=== PATIENT | female | born 1970 | race Caucasian/White ===

== ENCOUNTER 2021-01-06 11:54 | Emergency (ER) | payer SELFPAY ==
[2021-01-06 12:02] VITALS: BP 127/79; PULSE 120; RESP 16; TEMP 39.1; O2SAT 95
--- NOTE | 2021-01-06 12:54 | ED.FEVER ---
HPI - Fever General Chief Complaint: Fever Stated Complaint: Fever,Body Aches Source: patient and RN notes reviewed Limitations: no limitations History of Present Illness HPI Narrative: The patient, a smoker/drinker on no meds, presents with fever. Patient states after essentially uneventful day yesterday and throughout the night, the onset only this morning of fever and chills. This is associated with myalgias with headache with nausea and loose stools; no S OB, loss of taste/smell, CP, sore throat, earache, increased cough-she has mild smoker's cough, and would like refill of inhaler. [id number] testing is noncontributory Covid, strep. Related Data Allergies Allergy/AdvReac Type Severity Reaction Status Date / Time No Known Allergies Allergy Verified 01/06/21 12:04 Review of Systems Review of Systems: General/Constitutional: No weight loss, REPORTS fever Eyes: N0: Redness,discharge Ears/Nose/Throat: No: Epistaxis,ear discharge Respiratory: Denies: Hemoptysis Gastrointestinal: No Vomiting, Bleeding-rectal Skin: No Lumps, eruption Neurologic: No Focal Weakness,Sz Hematologic: Denies: Petechiae/Purpura Psychiatric: No: Suicida ideationl All Other Systems: Reviewed and Negative PMFSH Comments At time of signature, agree with nursing past medical, surgical, social and family history. There is no relevant family history pertinent to the presenting complaint Exam Narrative: General Appearance: Febrile/flushed appearing, Well nourished, no distress at all EYE: PERRLA, Conjunctiva clear Ears: Auditory canal normal, TM normal Nose: Rhinorrhea, Mucousal erythema Mouth/Throat: MM moist, Uvula midline, Pharyngeal erythema Neck: Supple, No adenopathy Respiratory: No respiratory distress, BS equal, CTA, increased AP diameter Cardiovascular: RRR tacky, No JVD Musculoskeletal: Non tender, Normal strength Skin: Warm, Dry Neurological: A&O x3, CN II-XII intact Psychiatric: Normal mood, Normal affect Course Vital Signs Vital signs: Vital Signs Temperature 102.4 F H 01/06/21 12:02 Pulse Rate 120 H 01/06/21 12:02 Respiratory Rate 16 01/06/21 12:02 Blood Pressure 127/79 01/06/21 12:02 Pulse Oximetry 95 01/06/21 12:02 Temperature 102.4 F H 01/06/21 12:02 Pulse Rate 120 H 01/06/21 12:02 Respiratory Rate 16 01/06/21 12:02 Blood Pressure 127/79 01/06/21 12:02 Pulse Oximetry 95 01/06/21 12:02 MDM - Fever Lab Data Labs: Lab Results 01/06/21 01/06/21 Range/Units 12:24 12:25 SARS-CoV-2 RNA (RT-PCR) Pending POC SARS CoV-2 Ag Negative (Negative) Influenza A Screen Negative Reference Range: Negative Influenza B Screen Negative Reference Range: Negative Strep Screen Presumptive Negative *(Reference Range: Negative)* Discharge Plan Discharge Clinical Impression: Acute febrile illness Patient Disposition: Home, Self-Care Condition: Stable Instructions: Antibiotic Form, Acute Bronchitis (ED) Additional Instructions: Vitamins D, C, B and zinc are helpful for febrile infections In smokers, pulse ox less than 93% should be seen by hospital/Doctor Prescriptions: New codeine-guaifenesin 10-100 mg/5 mL liquid 7.5 ml PO Q6H PRN (Reason: cough) Qty: 118 RF: 0 cefuroxime axetil 500 mg tablet 500 mg PO Q12H Qty: 14 RF: 0 Follow-up/Referrals: PHYSICIAN,DRILLING ASSISTANT [Primary Care Provider] - Stand Alone Forms: Work/School Release IP
[2021-01-07 17:33] LABS: SARS-CoV-2 RNA PCR Negative
--- NOTE | 2021-01-08 14:29 | PC.NURSE ---
PT CALLED AND REPORTS SHE CONTINUES WITH THE FEVER. SPOKE WITH DR BURGOS, WHO INITIALLY EVALUATED PT. AND INSTRUCTED TO CHANGE WORK NOTE TO 3 DAYS OFF AND NOT TO RETURN UNTIL FEVER FREE FOR 24 HOURS.
== END 2021-01-06 13:00 | disposition home or self-care (01) ==
PROVIDERS: Emergency Provider Emergency Medicine
DX: R50.9 Fever, unspecified (principal); Z20.822 Contact with and (suspected) exposure to COVID-19
CPT/HCPCS: 87081; 87426; 87804; 87880; 99203; C9803; G0463; U0003; U0005

== ENCOUNTER 2023-08-28 16:59 | Emergency (ER) | payer OTHER, SELFPAY ==
--- NOTE | ~2023-08-28 | XR_ITS ---
EXAMINATION: [id number] Exam Date/Time: 08/28/2023 17:12 CDT HISTORY: fall; pain Comparison: None. RESULT: Lines, tubes, and devices: None. Lungs and pleura: Clear. Cardiomediastinal silhouette: Stable. Other: No acute osseous or upper abdominal finding. Cortical irregularity of the right posterolatera l ninth and 10th ribs, with possible healing changes. IMPRESSION: No acute cardiopulmonary process. No acute osseous finding in the left ribs. Presumed subacute/chronic right posterolateral ninth and 10th rib fractures. Reviewed, dictated and finalized at location K.
[2023-08-28 17:16] VITALS: BP 98/64; PULSE 91; RESP 16; TEMP 36.2; O2SAT 95
--- NOTE | 2023-08-28 18:01 | ED.GENADULT ---
HPI - General Adult General Chief complaint: Unspecified Stated complaint: Broke rib Source: patient, RN notes reviewed and old records reviewed Mode of arrival: ambulatory Limitations: no limitations History of Present Illness HPI narrative: 52-year-old female to Express lateral rib pain that is worse with inspiration. Patient endorses she lost her balance and fell off of a step ladder yesterday when attempting to change a light bulb. Patient states that when she fell she landed with her left lateral ribs on the top the step ladder and then fell to the floor. Patient denies hitting head during fall or any other injuries. Patient states that she went to work and was told that she needed to have x-rays completed and be cleared to return to work. Patient argumentative with provider and initially refuses to answer additional questions. After deescalation patient denies shortness of breath, Chest pain, cough, pertinent medical history. Related Data Allergies Allergy/AdvReac Type Severity Reaction Status Date / Time No Known Allergies Allergy Verified 01/06/21 12:04 Review of Systems Review of Systems: All systems reviewed & are unremarkable except as noted in HPI and below Constitutional: Constitutional: Reports no additional constitutional complaints Eyes: Eyes: Reports no additional eye complaints ENT: Reports system reviewed and no additional complaints, except as documented Cardiovascular: Cardiovascular: Reports no additional cardiovascular complaints, Denies chest pain and Denies dyspnea Respiratory: Respiratory: Reports no additional respiratory complaints, Denies cough and Denies dyspnea Musculoskeletal: Musculoskeletal: Reports as per HPI and Reports other ( left lateral rib pain) Neurologic: Reports system reviewed and no additional complaints, except as documented Psychiatric: Psychiatric: Reports no additional psychiatric complaints PMFSH Comments At the time of my signature, I reviewed and agree with the nursing past medical, surgical, social, and family history. There is no relevant family history pertinent to the patient complaint. Exam Const: General: no acute distress, intoxicated appearing and well nourished; No cooperative Nutritional Appearance: well nourished Orientation/consciousness: patient oriented x3 Limitations: no limitations HENMT: Head: normal to inspection Ears: external ears normal Face/Nose/Sinus: Normal external nose present, Normal nares present, normal facial exam, No erythema and No edema Face and sinus: normal facial exam, no erythema and no edema Mouth: Yes Normal oral and palatal mucosa present Eyes: General: appearance normal, both eyes and all related structures Neck: Neck: normal visual inspection, full ROM and no meningeal signs Lymphatic: no lymphadenopathy noted and no lymphedema noted Chest: Other: patient refused Resp: Effort & Inspection: normal respiratory effort, able to speak in complete sentences, no audible wheezes, no cough, no grunting, not labored, no nasal flaring, no pursed lip breathing and no respiratory distress Auscultation: clear to auscultation bilaterally Cardio: Jugular venous distension: no JVD Rate: regular rate Rhythm: regular rhythm Back/Spine/Pelvis: Cervical Spine: cervical ROM normal Skin: General skin exam: normal color, no rashes or lesions noted and turgor normal Neuro: General: patient oriented x3, gait normal, moves all extremities and no meningeal signs Speech: normal speech Gait exam (Neuro): Normal gait present Extrem: General: normal to inspection and full ROM Psych: Appearance: grossly normal and disheveled Speech and movement: Slurred speech present, Psychomotor agitation in speech present and Restless speech present Affect: Indifferent affect present and Irritable affect present Attitude: Belligerent attititude/behavior present Course Course Emergency Course: Some parts of this dictation were genera
--- NOTE | 2023-08-28 18:20 | PC.NURSE ---
Patient very argumentative and confrontational with all staff while in express care. Not wanting to get undressed, arguing with all staff, refusing to sign papers, demanding to talk to radiologist. Told this nurse, sorry, i am an alcoholic .
== END 2023-08-28 18:25 | disposition home or self-care (01) ==
PROVIDERS: Emergency Provider Nurse Practitioner Family
DX: S20.212A Contusion of left front wall of thorax, initial encounter (principal); W11.XXXA Fall on and from ladder, initial encounter
CPT/HCPCS: 71101; 99213; G0463

== ENCOUNTER 2024-07-11 08:54 | Emergency (ER) | payer OTHER, SELFPAY ==
--- NOTE | ~2024-07-11 | XR_ITS ---
EXAMINATION: XR tibia fibula LT 2V DATE: 07/11/2024 09:35 INDICATION: Pain and bruising at the lateral upper left lower leg TECHNIQUE: Anteroposterior and lateral views of the left tibia and fibula were obtained. COMPARISON: None. FINDINGS: Alignment is normal. No fracture. Joint spaces are normal. Soft tissues are unremarkable. No knee or ankle joint effusion. IMPRESSION: 1. Negative left lower leg radiographs. Reviewed, dictated and finalized at location B.
[2024-07-11 09:05] VITALS: BP 127/76; PULSE 91; RESP 16; TEMP 36.4; O2SAT 96
--- OUTSIDE RECORDS SUMMARY | 2024-07-11 09:09 | XMS_ITS | Clinical Summary ---
Author Organization [facility] Address [address] [place] [address] Phone Care Team Providers Care Viticulturist Name Role Phone Unavailable Primary Care Provider Unavailabl e Allergies No known active allergies Medications gabapentin (NEURONTIN) 100 mg capsule 4 Active hydrOXYzine HCL (ATARAX) 25 mg tablet Take 25 mg by mouth 4 times daily as needed. Active fluoxetine HCl (PROZAC ORAL) Take by mouth. A ctive chlordiazePOXID E (LIBRIUM) 25 mg capsule Take 25 mg by mouth 3 times daily as needed for Alcohol / Drug Withdrawal Symptoms. 4 Active citalopram (CeleXA) 40 mg tablet Take 40 mg by mouth daily. 4 Active omeprazole (PriLOSEC) 10 mg Capsule, Delayed Release(E.C.) Take 10 mg by mouth daily. 4 Active QUEtiapine (SEROquel) 25 mg tablet Take 25 mg by mouth 2 times daily. 4 Active albuterol sulfate HFA 90 mcg/actuation aerosol inhaler Take 2 Puffs by inhalation every 6 hours as needed for Wheezing or Shortness of Breath. 8.5 Gram 4 Active Encounters Date Type Department Care Team Description 06/25/2024 External Device Data [facility] Provider, Abstract 06/18/2024 External Device Data [facility] Provider, Abstract 06/18/2024 External Device Data [facility] Provider, Abstract 06/11/2024 External Device Data [facility] Provider, Abstract 05/07/2024 External Device Data [facility] Provider, Abstract 05/01/2024 External Device Data [facility] Provider, Abstract from Last 3 Months Social History Tobacco Use Types Packs/Day Years Used Date Smoking Tobacco: Every Day Cigarettes Tobacco Cessation:Ready to Q uit: Not Asked; Counseling Given: Not Answered Alcohol Use Standard Drinks/Week Comments Not Currently 0 (1 standard drink = 0.6 oz pur e alcohol) 12 days sober Feeling Safe Answer Date Recorded Are you in a relationship wi th someone who hurts you emotionally and/or physically? No 10/08/2023 Comments No Sex and Gender Information Value Date Recorded Sex Assigned at Not on file Legal Sex Female 2:28 PM CDT Gender Identity Not on file Sexual Orientation Not on file Last Filed Vital Signs Vital Sign Reading Time Taken Comments Blood Pressure 111/76 10/08/2023 3:00 PM CDT Pulse 80 10/08/2023 3:00 PM CDT Temperature 36.7 C (98 F) 10/08/2023 11:51 AM CDT Respiratory Rate 17 10/08/2023 3:00 PM CDT Oxygen Saturation 91% 10/08/2023 3:00 PM CDT Inhaled Oxygen Concentration - - Weight 67.6 kg (149 lb 1.6 oz) 10/08/2023 11:51 AM CDT Height 165.1 cm (5' 5 ) 10/08/2023 11:51 AM CDT Body Mass Index 24.81 10/08/2023 11:51 AM CDT Plan of Treatment Health Maintenance Due Date Last Done Comments DTAP/TDAP/TD VACCINES (1 - Tdap) 1988 HEPATITIS B VACCINES (1 of 3 - 19+ 3-dose series) 11/12 HPV/Cotest (21-29) 1990 CERVICAL CANCER SCREENING 12/03/1999 HPV/Cotest (30-65) 12/03/1999 PAP SMEAR 12/03/1999 BREAST CANCER SCREENING 2009 COLORECTAL SCREENING 2014 Colorectal Cancer Screening 2014 FIT-DNA Q 3 years 2014 FIT/FOBT Q 1 year 2014 Flex Sig/CT Colonography Q 5 years 2014 ZOSTER VACCINE (1 of 2) 12/03/2019 INFLUENZA VACCINE (#1) 2023 Insurance
--- OUTSIDE RECORDS SUMMARY | 2024-07-11 09:09 | XMS_ITS | Clinical Summary ---
Author Organization [email or web address] Address [address] [place] [address] Care Team Providers Care High School Librarian Name Role Phone Nelida Gomez Primary Care Provider [phone] Source Comments [email or web address],non-owned Affiliates and Associated Physician Practices is amultiple site organization consisting of ambulatory clinics and hospital sitesin [place], [place], [place] and [place]. This disclosure is being madepursuant to the Care Everywhere program and may not contain all information available regarding this patient. Last updated 17.[email or web address] Allergies No known active allergies Medications * This document contains information received from the source organization and may not represent a complete record from that organization. * Be aware that medications may not be up to date on this document. Alwaysverify current medications with the patient. Symbicort 80-4.5 MCG/ACT inhalerIndicat ions:Asthma 04/26/19 24 Active docusate sodium (Colace) 100 MG capsuleIndicat ions:Constipat ion Take 1 (one) capsule by mouth once daily Activ e Melatonin 5 MGIndications: insomnia Active gabapentin (Neurontin) 100 MG capsuleIndicat ions:Alcohol Use Disorder Take 2 (two) capsules by mouth 3 times daily Reasons: Abuse or Misuse of Alcohol 180 capsule 11/15/19 24 Active venlafaxine (Effexor) 37.5 MG tabletIndicati ons:Major Depressive Disorder Take 1 (one) tablet by mouth once daily after breakfast Reasons: Major Depressive Disorder 30 tablet 1 11/15/19 24 Active naltrexone (Revia) 50 MG tabletIndicati ons:Alcohol Use Disorder Take 1 (one) tablet by mouth once daily Reasons: Abuse or Misuse of Alcohol 30 tablet 1 11/15/19 24 Active propranolol (Inderal) 10 MG tabletIndicati ons:Anxiety Take 1 (one) tablet by mouth at bedtime Reasons: Feeling Anxious 30 tablet 1 11/15/19 24 Active pantoprazole EC (Protonix) 40 MG tabletIndicati ons:Gastroesop hageal Reflux Disease Take 1 (one) tablet by mouth once daily Reasons: Gastroesophageal Reflux Disease 11/15/19 24 Active nicotine polacrilex (Nicorette) 2 MG gumIndications :Nicotine Dependence Take 1 (one) Each by mouth as needed for Smoking Cessation - Gum should be slowly chewed until a peppery taste emerges, then parked between cheek and gum to facilitate nicotine absorption. - Avoid eating or drinking for 15 minutes before and during chewing gum. Reasons: Nicotine Addiction 40 Each 1 11/15/19 24 Active Active Problems Problem Noted Date Diagnosed Date Current episode of major dep ressive disorder without prior episode, unspecified depression episode severity 11/12/2023 Social History Tobacco Use Types Packs/Day Years Used Date Smoking Tobacco: Every Day Cigarettes Smokeless Tobacco: Never Tobacco Cessation:Ready to Q uit: No; Counseling Given: Yes Alcohol Use Standard Drinks/Week Comments Yes 0 (1 standard drink = 0.6 oz pur e alcohol) 1/5 of vodka daily AUDIT-C Answer Date Recorded Q1: How often do you have a drink containing alcohol? 4 or more times a week 11/12/2023 Q2: How many drinks containi ng alcohol do you have on a typical day when you are drinking? 5 or 6 Q3: How often do you have si x or more drinks on one occasion? Daily or almost daily 11/12/2023 Overall Financial Resource Strain (CARDIA) Answe r Date Recorded How hard is it for you to pa y for the very basics like food, housing, medical care, and heating? Not very hard 11/12/2023 [facility] [place] of Occupat ional Health - Occupational Stress Questionnaire Answer Date Recorded Do you feel stress - tense, restless, nervous, or anxious, or unable to sleep at night because your mind is troubled all the time - these days? Only a little 11/12/2023 Hunger Vital Sign Answer Date Recorded Within the past 12 months, y ou worried that your food would run out before you got the money to buy more. Never true 11/12/19 24 Within the past 12 months, t he food you bought just didn't last and you didn't have money to get more. Never true 11/12/2023 PRAPARE - Transportation Answer Date Re corded In the past 12 months, has l ack of transportation kept you from medical appointments or from getting medications? No 03/2023 In the past 12 months, has l ack of transportation kept you from meetings, work, or from getting things needed for daily living? No 11/12/2023 Housing Stability Vital Sign Answer Bonifacio e Recorded In the last 12 months, was t here a time when you were not able to pay the mortgage or rent on time? No 11/12/2023 In the last 12 months, how many places have you lived? 1 11/12/2023 In the last 12 months, was t here a time when you did not have a steady place to sleep or slept in a [facility] (including now)? No 11/12/2023 Comments Unknown Sex and Gender Information Value Date Recorded Sex Assigned at Not on file Legal Sex Female 11:54 AM [employer] Gender Identity Not on file Sexual Orientation Not on file Last Filed Vital Signs Vital Sign Reading Time Taken Comments Blood Pressure 126/85 11/15/2023 9:04 AM CDT Pulse 79 11/15/2023 9:04 AM CDT Temperature 36.7 C (98 F) 11/15/2023 9:04 AM CDT Respiratory Rate 16 11/15/2023 9:04 AM CDT Oxygen Saturation 98% 11/15/2023 9:04 AM CDT Inhaled Oxygen Concentration - - Weight 63.5 kg (140 lb) 04/28/2023 10:24 AM [employer] Height 163.8 cm (5' 4.5 ) 04/28/2023 10:24 AM CS T Body Mass Index 23.66 04/28/2023 10:24 AM [employer] Plan of Treatment Health Maintenance Due Date Last Done Comments COLOGUARD (AGES 45-75) - COL ON CA SCREENING 1969 COLON MONITORING 1969 COLONOSCOPY - COLON CA SCREENING 1969 CT COLONOGRAPHY - COLON CA SCREENING 1969 Colorectal Cancer Screening 1969 FIT - COLON CA SCREENING 1969 FLEX SIG - COLON CA SCREENING 1969 MAMMOGRAM 1969 PAP SMEAR 1969 HIV SCREENING 1984 HEPATITIS C SCREENING 11/28/1987 DTAP/TDAP/TD VACCINES (1 - Tdap) 1988 HEPATITIS B VACCINE (1 of 3 - 19+ 3-dose series) 1988 PNEUMOCOCCAL VACCINE 50+ (1 of 2 - PCV) 1988 ZOSTER VACCINE (1 of 2) 12/03/2019 COVID-19 VACCINE (1 - 2023-2 5 season) 2023 DEPRESSION SCREENING 03/13/2024 INFLUENZA VACCINE (Season Ended) 2024 LIPID TESTING 11/11/2028 11/12/2023 HIB VACCINE Aged Out No longer eligi ble based on patient's age to complete this topic HPV VACCINE Aged Out No longer eligi ble based on patient's age to complete this topic MENINGOCOCCAL (Group B) VACC INE SHARED DECISION-MAKING Aged Out No longer eligibl e based on patient's age to complete this topic MENINGOCOCCAL GROUPS A/C/Y/W VACCINE Aged Out No longer eligible b ased on patient's age to complete this topic Procedures Procedure Name Priority Date/Time Associated Diagnosis Comments LIPID PROFILE AM Draw 11/12/2023 7:17 AM CDT from Last 3 Months or Most Recently Relevant to Health Maintenance Results * (ABNORMAL) LIPID PROFILE (11/12/2023 7:17 AM CDT) Cholesterol 145 <200 mg/dL 11/12/2023 9:59 AM CDT [facility] Triglycerides 154(H) <150 mg/dL 11/12/2023 9:59 AM CDT [facility] HDL Cholesterol 64 >40 mg/dL 4 9:59 AM CDT [facility] LDL Calculated 50 <130 mg/dL 11/12/2023 9:59 AM CDT [facility] VLDL Calculated 31(H) <=30 mg/dL 4 9:59 AM CDT [facility] Chol HDL Ratio 2.3 <4.5 11/12/2023 9:59 AM CDT [facility] LDL/HDL Ratio 0.8 <5.0 11/12/2023 9:59 AM CDT [facility] Blood BLOOD SPECIMEN / Unknown Venipuncture / Unknown 11/12/2023 7:17 AM CDT 11/12/2023 8:09 AM CDT Marizol Solomon [employer] [facility] - CHEMISTRY ORDERABLE S Final Result [facility] [address] [place] [address] from Last 3 Months or Most Recently Relevant to Health Maintenance Insurance [facility] Advance Directives * Full Code (Latest Code Status on File) Date Activated Date Inactivated Comments 11/12/2023 2:18 AM 11/15/2023 12:00 PM Care Teams High School Librarian Relationship Specialty Start Date End Date Nelida Gomez [address] [place] [address] Dr Lowe [address] [place] [phone] PCP - General 04/28/23
--- OUTSIDE RECORDS SUMMARY | 2024-07-11 09:09 | XMS_ITS | Clinical Summary ---
Author Organization [facility] Address [address] [place] [address] Phone Care Team Providers Care Management Scientist Name Role Phone Provider, None Primary Care Provider Unavailabl e Allergies No known active allergies Medications HYDROcodone-joão taminophen (NORCO) 5-325 MG Tablet Take 1 Tablet by mouth every 4 hours as needed for Moderate or more severe pain. 20 Tablet 1 Active albuterol 108 (90 Base) MCG/ACT Aerosol Solution take 2 Puffs by inhalation every 6 hours as needed for Wheezing or Cough. 1 Inhaler 1 1 Active Social History Tobacco Use Types Packs/Day Years Used Date Smoking Tobacco: Every Day Comments Unknown Sex and Gender Information Value Date Recorded Sex Assigned at Not on file Legal Sex Female 12:39 AM CDT Gender Identity Not on file Sexual Orientation Not on file Last Filed Vital Signs Vital Sign Reading Time Taken Comments Blood Pressure 133/77 07/15/2020 10:30 AM CDT Pulse 78 07/15/2020 10:30 AM CDT Temperature 36.4 C (97.6 F) 07/15/2020 8:35 AM CDT Respiratory Rate 18 07/15/2020 9:02 AM CDT Oxygen Saturation 93% 07/15/2020 10:30 AM CDT Inhaled Oxygen Concentration - - Weight 63.5 kg (140 lb) 07/15/2020 8:35 AM CDT Height 166.4 cm (5' 5.5 ) 07/15/2020 8:35 AM CDT Body Mass Index 22.94 07/15/2020 8:35 AM CDT Plan of Treatment Health Maintenance Due Date Last Done Comments Hepatitis C Virus (HCV) Screening 1969 TdaP Immunization 1969 Hepatitis B Immunization (1 of 3 - 19+ 3-dose series) 1988 Pap Smear 1990 Cervical Cancer Screening (CCS) 12/03/1999 HPV/Cotest 12/03/1999 Colonoscopy 2014 Colorectal Cancer Screening 2014 Cologuard 12/03/2019 Immunochemical Fecal Occult Blood 12/03/2019 Mammogram 12/03/2019 Pneumococcal Immunization (5 0+ years) (1 of 1 - PCV) 12/03/2019 Zoster Immunization (1 of 2) 12/03/2019 Influenza Immunization (#1) 2023 SARS-COV-2 Immunization ( - 2023- season) 2023 Respiratory Syncytial Virus (RSV) Immunization (Adult) (1 - 1-dose 75+ series) 2044 Meningococcal Immunization (ACWY) Aged Out No longer eligible based on patient's age to complete this topic Pneumococcal Immunization Combined Aged Out No longer eligible based on patient's age to complete this topic Rotavirus Immunization Aged Out No lo nger eligible based on patient's age to complete this topic Care Teams Management Scientist Relationship Specialty Start Date End Date Provider, None [place] PCP - General 07/15/20
--- NOTE | 2024-07-11 09:17 | ED_ITS ---
HPI - Extremity Injury (Lower) General Chief Complaint: Extremity Injury, Lower Stated Complaint: Injury to Left Leg Source: patient and RN notes reviewed Mode of arrival: ambulatory Limitations: no limitations History of Present Illness HPI Narrative: 53-year-old female presents Express Care complaining of a left lower leg injury. 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 Patient says she has some abrasions to the anterior surface of her left lower leg. Patient also states having bruising to her left lower leg. Patient is able to bear weight on her left lower leg. Patient denies any left knee pain or left ankle/foot pain. Patient states the pain is mainly on the lateral side of her left duffy. Patient is unsure for tetanus is up-to-date. She denies any numbness or tingling. Patient states the pain is worse when she is on her feet all day and she states that her leg feels like it is throbbing at by the in the day. Related Data Home Medications ?Medication ?Instructions ?Recorded ?Confirmed ?Last Taken ?Type No Home Medications 07/11/24 07/11/24 Unknown History Allergies Allergy/AdvReac Type Severity Reaction Status Date / Time No Known Allergies Allergy Verified 07/11/24 09:09 Review of Systems Review of Systems: CONSTITUTIONAL: Denies fever, chills, or sweats. EYES: Denies visual changes, redness, or discharge. ENT: Denies rhinorrhea, congestion, sore throat, or otalgia. CARDIOVASCULAR: Denies chest pain, palpitations, or edema. RESPIRATORY: Denies cough or dyspnea. GASTROINTESTINAL: Denies abdominal pain, nausea, vomiting, or diarrhea. GENITOURINARY: Denies dysuria or hematuria. SKIN: Denies rash or itching. MUSCULOSKELETAL: Denies back pain, joint pain, or myalgia. Left lower leg injury. NEUROLOGIC: Denies headache, numbness, or weakness. PSYCHIATRIC: Denies anxiety or depression. All other systems reviewed are negative, except as documented in HPI. PMFSH Comments At the time of my signature, I reviewed and agree with the nursing past medical, surgical, social, and family history. There is no relevant family history pertinent to the patient complaint. Exam Narrative: GENERAL: This is a well-nourished, well-developed adult, in no apparent distress. They are non ill-appearing, nontoxic appearing. HEAD: normocephalic, atraumatic. EYES: Sclera clear/white. Conjunctiva normal. Vision is grossly intact. Extraocular movements intact EARS: External ears normal, Hearing grossly intact. NOSE: External nose normal THROAT: Mucous membranes moist, NECK: Normal range of motion CARDIOVASCULAR: Regular rate and rhythm without murmurs, gallops, or rubs. RESPIRATORY: Respiratory rate normal, respiratory effort nonlabored, no respiratory distress SKIN: warm, Dry, intact with no suspicious lesions or rash, good texture and turgor. NEURO: awake, alert, and oriented to person, place and time. There were no obvious focal neurologic abnormalities. EXTREMITIES: Left lower leg: There is bruising and slight swelling to the left lower leg below the knee. There is no obvious deformity. Are abrasions noted throughout the left lower leg below the knee. Abrasions are in a vertical linear pattern consistent with her injury. Tenderness to palpation to the lateral the upper part of the left lower leg below the knee. Patient has normal flexion and extension of her left knee. Patient is able to dorsiflex and plantar flex her left ankle. Aponte test negative. No valgus laxity or varus laxity. Pedal pulse 2 +and palpable, posterior tibialis pulse 2 +and palpable. Neurovascular status is intact distal to the injury. Normal sensation. Capillary refill less than 2 seconds. Course Course Emergency Course: Portions of this record may have been created with voice recognition software Level of Care: Express Care Visit Vital Signs Vital signs: Vital Signs Temperature 97.6 F 07/11/24 09:05 Pulse Rate 91 07/11/24 09:05 Respiratory Rate 16 07/11/24 09:05 Blood Pressure 127/76 07/11/24 09:05 Pulse Oximetry 96 07/11/24 09:05 Oxygen Delivery Room Air 07/11/24 09:05 Temperature 97.6 F 07/11/24 09:05 Pulse Rate 91 07/11/24 09:05 Respiratory Rate 16 07/11/24 09:05 Blood Pressure 127/76 07/11/24 09:05 Pulse Oximetry 96 07/11/24 09:05 Oxygen Delivery Room Air 07/11/24 09:05 Reviewed MDM - Extremity Injury (Lower) MDM Narrative Medical decision making narrative: X-ray negative for any fractures or acute findings of her left lower leg. Patient given Richard wrap for comfort, she is also advised she may wear compression stocking to help with swelling. No evidence of infection to the wounds. Her tetanus was updated today. Discussed physical exam findings. Advised supportive measures and signs/symptoms to go to the ER. Pt is appropriate for outpt treatment and f/u. Differential Diagnosis Differential diagnosis: Likely other (Tibia fracture, fibula fracture, abrasion) Critical Care Time Critical Care Time Critical Care Time: No Discharge Plan Discharge Clinical Impression: Injury of lower leg, left Qualifiers: Encounter type: initial encounter Qualified Code(s): S89.92XA - Unspecified injury of left lower leg, initial encounter Patient Disposition: Home Condition: Stable Instructions: Abrasion (ED), P.R.I.C.E. Treatment (ED) Additional Instructions: Your x-ray was negative for any fracture or acute findings. Your tetanus was updated today. Rest and elevate the leg; bear weight as tolerated Apply ice 15-20 minute intervals several times a day Keep it wrapped with RICHARD or a compression stocking. Motrin 600mg -800mg every 8 hours, alternate with Tylenol 1000mg every 8 hours as needed Follow up with your primary care provider as needed in 1-2 weeks Possibly abrasions daily with mild soap and water. Keep them covered until they have healed and scabbed over. Please go to the ER if he develops severe pain, worsening swelling, redness, drainage, fevers or any other concerns. Patient Language: [place] Citizen Prescriptions: No Action No Home Medications Follow-up/Referrals: PHYSICIAN,MACHINE BINDER STRIPPER [Primary Care Provider] - Time of Disposition: 10:06
[2024-07-11] MEDS: TETANUS,DIPHTHERIA,AC PERTUSSIS ADULT (0.5 ML) BOOSTRIX IM (10:05)
== END 2024-07-11 10:23 | disposition home or self-care (01) ==
DX: S89.92XA Unspecified injury of left lower leg, initial encounter (principal); W20.8XXA Other cause of strike by thrown, projected or falling object, initial encounter; Y99.0 Civilian activity done for income or pay; Z23 Encounter for immunization
CPT/HCPCS: 73590; 90471; 90715; 99213; G0463

== ENCOUNTER 2025-01-08 13:40 | Emergency (ER) | payer OTHER, SELFPAY ==
--- NOTE | ~2025-01-08 | XR_ITS ---
Examination: XR chest 2V Clinical History: Cough, LT ANT SHARP CP, COPD, LOW O2, LT WHEEZE Comparison: None Technique: PA and Lateral Findings: Cardiomediastinal silhouette normal size and configuration. Mild bibasilar atelectasis and/or scarring. Minimal scattered interstitial changes. No acute bony abnormality. Chronic bilateral lower rib fracture. IMPRESSION: 1. Mild pneumonitis not excluded. 2. Otherwise no acute abnormality. Reviewed, dictated and finalized at location R.
[2025-01-08 13:47] VITALS: BP 98/62; PULSE 95; RESP 16; TEMP 36.1; O2SAT 89
--- NOTE | 2025-01-08 13:51 | ECG_ITS ---
Test Date: 2025-01-08 13:56:16 Measurements Intervals Bowlegs Rate: 86 P: 65 MS: 161 QRS: 29 QRSD: 100 T: 42 QT: 372 QTc: 446 Interpretive Statements SINUS RHYTHM BASELINE ARTIFACT- I, III, AVR, AVL NORMAL ECG No previous ECG available for comparison Electronically Signed On 01-08-2025 14:41:57 CDT by Sd Thomas D.O.
--- NOTE | 2025-01-08 13:51 | ED.CHESTPAIN ---
HPI - Chest Pain General Chief Complaint: Upper Respiratory Infection Stated Complaint: URI Symptoms Time Seen by Provider: 01/08/25 13:56 Source: patient and RN notes reviewed Mode of arrival: ambulatory Limitations: no limitations History of Present Illness HPI narrative: 54-year-old female presents with concern for shortness of breath. She reports intermittent left-sided chest pain that she always has, there is no change to that chest pain. She reports shortness of breath and cough have been worsening. She has history of COPD, she is not treated for COPD because she does not have a primary care provider. Patient reports she is a heavy drinker, drinks a 5th of vodka daily. She has recently been in rehab. She is continuing to drink. She recently had ?a mild heart attack? and she was then prescribed blood thinners, she does not take blood thinners because she was told she should not take them and drink alcohol. She reports history of bronchitis and pneumonia. She denies current pain MD complaint: chest pain Related Data Allergies Allergy/AdvReac Type Severity Reaction Status Date / Time No Known Allergies Allergy Verified 01/08/25 14:01 Review of Systems Review of Systems: CONSTITUTIONAL: Denies malaise, chills, sweats, or fever. EYES: Denies visual changes, redness, or discharge. ENT: Denies rhinorrhea, congestion, sinus pain, otalgia and sore throat. CARDIOVASCULAR: Reports intermittent chest pain. Denies palpitations, or edema. RESPIRATORY: Reports cough, dyspnea. GASTROINTESTINAL: Denies abdominal pain, nausea, vomiting, diarrhea SKIN: Denies rash or itching. MUSCULOSKELETAL: Denies myalgia. NEUROLOGIC: Denies headache. All systems reviewed & are unremarkable except as noted in HPI and below PMFSH Comments At time of signature, agree with nursing past medical, surgical, social and family history. There is no relevant family history pertinent to the presenting complaint Exam Narrative: GENERAL: Well-appearing, well-nourished, and in no acute distress. HEAD: Normocephalic EYES: PERRLA, conjunctivae clear ENT: Nares clear. Mucous membranes moist. NECK: Supple. No lymphadenopathy CHEST: Aeration fair with scattered wheeze and rhonchi, breath sounds equal. No rales, or stridor. No respiratory distress, speaks in full sentences. HEART: Regular rate and rhythm. No murmur heard. SKIN: Warm, dry, no rash. NEURO: Alert and oriented x3. PSYCH: Normal mood and affect Course Course Emergency Course: Patient is aware of diagnosis, understands and agrees to treatment plan. Anticipatory guidance given. Patient agrees to follow-up as directed and is aware of reasons to seek care at the emergency department. Portions of this record may have been created with voice recognition software Level of Care: Express Care Visit Reevaluation(s) Reevaluation #1: Aeration is improved, still has wheezes and crackles, patient's SpO2 is still low, will repeat treatment Date: 01/08/25 Time: 14:35 Reevaluation #2: Patient's lungs are mostly clear, however SpO2 is ranging from 82-87 on room air. I recommended this patient go to the emergency room, after much discussion the patient is refusing transfer to the emergency room. She understands risk factors of going home instead of being transferred to ER, I will treat her to the best of my ability with antibiotics, inhaler and steroids. She has instructions to go to the emergency room for symptoms worsen or do not improve Date: 01/08/25 Time: 15:00 Vital Signs Vital signs: Reviewed. MDM - Chest Pain MDM Narrative Medical decision making narrative: The patient has requested to leave the Urgent Care against medical advice and not be transferred to the emergency room. The patient reason(s) for leaving include, but are not limited to, the following: She has animals at home she is take care of. I believe this patient is of sound mind and competent to refuse medical care. The patient is responding and asking questions appropriately. The patient is oriented to person, place and time. The patient is not psychotic, delusional, suicidal, homicidal or hallucinating. The patient demonstrates a normal mental capacity to make decisions regarding their healthcare. The patient is clinically sober and does not appear to be under the influence of any illicit drugs at this time. The patient has been advised of the risks, in layman terms, of leaving AMA which include, but are not limited to , coma, permanent disability, loss of current lifestyle, delay in diagnosis. Alternatives have been offered - the patient remains steadfast in their wish to leave without transfer to emergency room. The patient has been advised that should they change their mind to please go to the emergency room or call 911. The patient understands that in no way does an AMA discharge mean that I do not want them to have the best medical care available. To this end, I have provided appropriate prescriptions, referrals, and discharge instructions. The patient did sign AMA paperwork. The above discussion was witnessed by another member of staff. Differential Diagnosis Differential diagnosis: Likely fracture of rib, pneumothorax, st elevation myocardial infarction, chest pain and other (Pneumonia, COPD exacerbation, PE) Lab Data Attestation: I reviewed the patient's lab results. Imaging Data My impression: Images reviewed, interpreted by radiologist, agree, see report. Radiologist's impression: Comparison: None Technique: PA and Lateral Findings: Cardiomediastinal silhouette normal size and configuration. Mild bibasilar atelectasis and/or scarring. Minimal scattered interstitial changes. No acute bony abnormality. Chronic bilateral lower rib fracture. IMPRESSION: 1. Mild pneumonitis not excluded. 2. Otherwise no acute abnormality. ECG Data EKG #1: ECG completion date: 01/08/25 ECG completion time: 13:56 Prior ECG tracings: not available for review Interpretation: Rate 86, NM interval 161, QRS duration 100 QT 372, QTC 415 EKG Interpretation: normal rate and sinus rhythm Critical Care Time Critical Care Time Critical Care Time: No Discharge Plan Discharge Clinical Impression: Shortness of breath Patient Disposition: Left Against Medical Advice Condition: Guarded Prognosis Instructions: Antibiotic Form, COPD (Chronic Obstructive Pulmonary Disease) (ED) Additional Instructions: It is my advice that you go to the hospital for further evaluation and treatment of your low oxygen level and shortness of breath. You understand that you are leaving the Urgent Care against my medical advice. However I will treat you to the best my ability, a prescription has been sent in for 2 antibiotics, steroids and an albuterol inhaler. Please start those medications right away, you will start the steroid tomorrow, everything also start today. If your symptoms worsen in any way please go to the emergency room or call 911 Patient Language: Kyr[place] Prescriptions: New prednisone 50 mg tablet 50 mg PO DAILY 5 Days Qty: 5 0RF albuterol sulfate 90 mcg/actuation HFA aerosol inhaler 2 puff INHALATION QID PRN (Reason: shortness of breath or wheezing) Qty: 8.5 0RF doxycycline monohydrate 100 mg tablet 100 mg PO BID 7 Days Qty: 14 0RF amoxicillin-pot clavulanate 875-125 mg tablet 1 tablet PO Q12H 10 Days Qty: 20 0RF Follow-up/Referrals: PHYSICIAN,BLOOD BANK ASSISTANT [Primary Care Provider, Internal Medicine] Time of Disposition: 15:10
[2025-01-08] MEDS: IPRATROPIUM 0.5 MG/ALBUTEROL SULFATE 2.5 MG (BASE) AMPUL.NEB 3 ML INHALATION ×2 (14:14→14:43)
--- OUTSIDE RECORDS SUMMARY | 2025-01-08 15:10 | XMS_ITS | Clinical Summary ---
Author Organization [facility] Address [address] [place] [address] Phone Care Team Providers [employer] Worker Name Role Phone Nelida Gomez MD Primary Care Provider [phone] Liv Gage APRN, SHUTTLE HAND Unavailable Allergies No known active allergies Medications metoprolol Succinate (TOPROL-XL) 25 MG TABLET SR 24 HR Take 1 Tablet by mouth daily. 90 Tablet 5 Active folic acid (FOLVITE) 1 MG Tablet Take 1 Tablet by mouth daily. 30 Tablet 5 Active chlordiazePOXID E (LIBRIUM) 25 MG CapsuleIndicati ons:Alcohol Withdrawal Syndrome,Anxiet y Start with 1 tablet every 8 hours for one day, then decrease to 1 tab twice a day for one day, then 1 tab po every 6 to 8 hours as needed for anxiety or withdrawal symptoms. Indications: Alcohol Withdrawal Syndrome, Feeling Anxious 20 Capsule 5 Active Additional Information Patient not taking.Reported on 11/22/2024 aspirin 81 MG Chewable Tablet Take 1 Tablet by mouth daily. 5 Active thiamine (VITAMIN B1) 100 MG Tablet Take 1 Tablet by mouth daily for 30 days. 30 Tablet 5 12/17/19 25 Active Problems Problem Noted Date Diagnosed Date NSTEMI (non-ST elevated myocardial infarction) 0 11/13/2024 COPD (chronic obstructive pulmonary disease) ETOH abuse Polysubstance abuse Overview (11/13/2024): remote hx of using cocaine, currently using meth Tobacco abuse Anxiety and depression Encounters Date Type Department Care Team Description 01/06/2025 Telephone [facility] [address] [place] [address] Liv Gage APRN, SHUTTLE HAND 12/18/2024 4:52 AM CDT - 12/18/2024 9:13 AM CDT Emergency [facility] Emergency [address] [place] [address] Bronson Ovalle MD Engdahl, Robert Fontana MD Syncope, unspecified syncope type Discharge Disposition: Left Against Medical Advice 12/18/2024 Travel 11/22/2024 3:30 PM CDT Office Visit [facility] [address] [place] [address] Liv Gage APRN, WES Takotsubo cardiomyopathy (Primary Dx); Polysubstance abuse; ETOH abuse Discharge Disposition: Discharged to home or Selfcare 11/22/2024 Travel 11/14/2024 8:30 AM CDT - 11/14/2024 9:50 AM CDT Surgery [facility] Cardiac Final [facility] [employer] Super[facility] [address] [place] [address] Lawrence Castillo MD PhD CARDIAC CATH 11/13/2024 10:06 AM CDT - 11/16/2024 12:34 PM CDT Hospital Encounter [facility] Medical/Surgical Intensive Care [address] [place] [address] Ana Maria Pimentel APRN, Yanique Malhotra APRN, Kp Ramos MD Carmicheal, Janae Thibodeaux MD NSTEMI (non-ST elevated myocardial infarction) Discharge Disposition: Discharged to home or Selfcare 11/13/2024 Travel from Last 3 Months Social History Tobacco Use Types Packs/Day Years Used Date Smoking Tobacco: Every Day Alcohol Use Standard Drinks/Week Comments Yes 0 (1 standard drink = 0.6 oz pur e alcohol) 12 pack weekly Social Connection and Isolation Panel Answer Date Recorded In a typical week, how many times do you talk on the phone with family, friends, or neighbors? Patient declined 11/13/2024 How often do you get togethe r with friends or relatives? Patient declined 11/13/2024 How often do you attend advent or zoroastrianism serv ices? Patient declined 11/13/2024 Do you belong to any clubs o r organizations such as advent groups, unions, fraternal or athletic groups, or school groups? Patient declined 11/13/2024 How often do you attend meet ings of the clubs or organizations you belong to? Patient declined 11/13/2024 Are you , , di vorced, , never , or living with a partner? Patient declined 11/13/2024 AUDIT-C Answer Date Recorded Q1: How often do you have a drink containing alc ohol? Patient declined 11/13/2024 Q2: How many drinks containi ng alcohol do you have on a typical day when you are drinking? Patient declined 11/13/2024 Q3: How often do you have si x or more drinks on one occasion? Patient declined 11/13/2024 Overall Financial Resource Strain (CARDIA) Answe r Date Recorded How hard is it for you to pa y for the very basics like food, housing, medical care, and heating? Patient declined 11/13/2024 [facility] - Occupational Stress Questionnaire Answer Date Recorded Do you feel stress - tense, restless, nervous, or anxious, or unable to sleep at night because your mind is troubled all the time - these days? Patient declined 11/13/2024 Exercise Vital Sign Answer Date Recorde d On average, how many days pe r week do you engage in moderate to strenuous exercise (like a brisk walk)? Patient declined On average, how many minutes do you engage in exercise at this level? Patient declined 11/13/2024 Hunger Vital Sign Answer Date Recorded Within the past 12 months, y ou worried that your food would run out before you got the money to buy more. Patient declined Within the past 12 months, t he food you bought just didn't last and you didn't have money to get more. Patient declined 05/2024 PRAPARE - Transportation Answer Date Re corded In the past 12 months, has l ack of transportation kept you from medical appointments or from getting medications? Patient declined 11/13/2024 In the past 12 months, has l ack of transportation kept you from meetings, work, or from getting things needed for daily living? Patient declined 11/13/2024 Housing Stability Vital Sign Answer Bonifacio e Recorded In the last 12 months, was t here a time when you were not able to pay the mortgage or rent on time? Patient declined 11/14/19 25 In the past 12 months, how m any times have you moved where you were living? 0 11/13/2024 At any time in the past 12 m onths, were you homeless or living in a jail (including now)? Patient declined 11/13/2024 [facility] Utilities Answer Date Recorded In the past 12 months has th e [employer], gas, oil, or water company threatened to shut off services in your home? Patient declined 11/13/2024 Comments No Sex and Gender Information Value Date Recorded Sex Assigned at Not on file Legal Sex Female 12:39 AM CDT Gender Identity Not on file Sexual Orientation Not on file Last Filed Vital Signs Vital Sign Reading Time Taken Comments Blood Pressure 139/83 12/18/2024 6:15 AM CDT Pulse 94 12/18/2024 8:30 AM CDT Temperature 35.7 C (96.3 F) 12/18/2024 4:54 AM CDT Respiratory Rate 19 12/18/2024 8:00 AM CDT Oxygen Saturation 96% 12/18/2024 8:30 AM CDT Inhaled Oxygen Concentration - - Weight 63.3 kg (139 lb 8.8 oz) 12/18/2024 4:54 A M CDT Height 162.6 cm (5' 4) 12/18/2024 4:54 AM CDT Body Mass Index 23.95 12/18/2024 4:54 AM CDT Plan of Treatment Upcoming Encounters Date Type Department Care Team (Late st Contact Info) Description 03/12/2025 3:30 PM PHLEBOTOMY TECHNICIAN Office Visit [facility] [place] [address] [place] [id number] Liv Gage APRN, SHUTTLE HAND [address] [place] [address] Health Maintenance Due Date Last Done Comments Hepatitis C Virus (HCV) Screening 1969 Mammogram 1969 Hepatitis B Immunization (1 of 3 - 19+ 3-dose series) 1988 Pneumococcal Immunization (5 0+ years) (1 of 2 - PCV) 1988 Pap Smear 1990 Cervical Cancer Screening (CCS) 12/03/1999 HPV/Cotest 12/03/1999 Cologuard 2014 Colonoscopy 2014 Colorectal Cancer Screening 2014 Immunochemical Fecal Occult Blood 2014 Respiratory Syncytial Virus (RSV) Immunization (Adult) (1 - Risk 50-74 years 1-dose series) 12/03/2019 Zoster Immunization (1 of 2) 12/03/2019 Influenza Immunization (#1) 2024 02/04/2022 SARS-COV-2 Immunization ( - season) 2024 DTaP/Tdap/Td Immunization Discontinued 07/11/2024 TdaP Immunization Completed 07/11/2024 Human Papillomavirus (HPV) Immunization Aged Out No longer eligible b ased on patient's age to complete this topic Meningococcal Immunization (ACWY) Aged Out No longer eligible based on patient's age to complete this topic Rotavirus Immunization Aged Out No lo nger eligible based on patient's age to complete this topic Procedures Procedure Name Priority Date/Time Associated Diagnosis Comments TROPONIN I, HIGH SENSITIVITY (HSTRP) STAT 12/18/2024 6:[address] ANGIO CHEST W/WO CONTRAST WITH PP (POST PROCESSING) Stat with Interpretation 12/18/2024 6:50 AM CDT XR CHEST SINGLE VIEW PORTABLE STAT 12/18/2024 5:47 AM CDT GOLD TOP TUBE STAT 12/18/2024 5:03 AM CDT CBC WITH AUTO DIFFERENTIAL STAT 12/18/2024 5:03 AM CDT EXTRA TUBES STAT 12/18/2024 5:03 AM CDT PROTIME (PT) (PROTHROMBIN TIME) STAT 12/18/2024 5:03 AM CDT APTT (PTT) STAT 12/18/2024 5:03 AM CDT N-TERMINAL- PRO B TYPE NATRIURETIC PEPTIDE STAT 12/18/2024 5:03 AM CDT D-DIMER STAT 12/18/2024 5:03 AM CDT TROPONIN I, HIGH SENSITIVITY (HSTRP) STAT 12/18/2024 5:03 AM CDT CMP (COMPREHENSIVE METABOLIC PANEL) STAT 12/18/2024 5:03 AM CDT COMPLETE BLOOD COUNT (CBC) WITH DIFF STAT 12/18/2024 5:03 AM CDT EKG 12 LEAD STAT 12/18/2024 4:57 AM CDT EKG SCAN 12/18/2024 12:[address] - CHEST 12/18/2024 12:00 AM CDT CBC WITH AUTO DIFFERENTIAL Routine 11/16/2024 3:31 AM CDT CMP (COMPREHENSIVE METABOLIC PANEL) Routine 11/16/2024 3:31 AM CDT PHOSPHORUS (PO4) Routine 11/16/2024 3:31 AM CDT MAGNESIUM (MG) Routine 11/16/2024 3:31 AM CDT COMPLETE BLOOD COUNT (CBC) WITH DIFF Routine 11/16/2024 3:31 AM CDT RHYTHM STRIP 11/16/2024 12:00 AM CDT RHYTHM STRIP 11/16/2024 12:00 AM CDT CBC WITH AUTO DIFFERENTIAL Routine 11/15/2024 4:04 AM CDT COMPLETE BLOOD COUNT (CBC) WITH DIFF Routine 11/15/2024 4:04 AM CDT BASIC METABOLIC PANEL W/ CALCIUM TOTAL Routine 11/15/2024 4:04 AM CDT RHYTHM STRIP 11/15/2024 12:00 AM CDT RHYTHM STRIP 11/15/2024 12:00 AM CDT RHYTHM STRIP 11/15/2024 12:00 AM CDT CARDIAC CATH Routine 11/14/2024 9:52 AM CDT CBC WITH AUTO DIFFERENTIAL Routine 11/14/2024 3:19 AM CDT APTT (PTT) Timed 11/14/2024 3:19 AM CDT COMPLETE BLOOD COUNT (CBC) WITH DIFF Routine 11/14/2024 3:19 AM CDT BASIC METABOLIC PANEL W/ CALCIUM TOTAL Routine 11/14/2024 3:19 AM CDT RHYTHM STRIP 11/14/2024 12:00 AM CDT RHYTHM STRIP 11/14/2024 12:00 AM CDT RHYTHM STRIP 11/14/2024 12:00 AM CDT RHYTHM STRIP 11/14/2024 12:00 AM CDT APTT (PTT) STAT 11/13/2024 8:14 PM CDT PROTIME (PT) (PROTHROMBIN TIME) STAT 11/13/2024 8:14 PM CDT MRSA NASAL PCR Routine 11/13/2024 5:19 PM CDT MRSA NASAL BY PCR Routine 11/13/2024 5:1 9 PM CDT CBC WITH AUTO DIFFERENTIAL STAT 11/13/2024 5:12 PM CDT CMP (COMPREHENSIVE METABOLIC PANEL) STAT 11/13/2024 5:12 PM CDT COMPLETE BLOOD COUNT (CBC) WITH DIFF STAT 11/13/2024 5:12 PM CDT LACTIC ACID (LACTATE) STAT 11/13/2024 5:12 PM CDT TROPONIN I, HIGH SENSITIVITY (HSTRP) STAT 11/13/2024 5:12 PM CDT CULTURE, BLOOD STAT 11/13/2024 5:12 PM CDT CULTURE, BLOOD STAT 11/13/2024 5:12 PM CDT ADULT TRANS THORACIC ECHO 2D COMPLT W CONT Routine 11/13/2024 4:57 PM CDT US ABDOMEN LIMITED LEVEL 3 THREE ORGAN Stat with Interpretation 11/13/2024 3:35 PM CDT ETHYL ALCOHOL (ETHANOL) STAT 11/13/2024 3:30 PM CDT TROPONIN I, HIGH SENSITIVITY (HSTRP) STAT 11/13/2024 3:30 PM CDT PROTIME (PT) (PROTHROMBIN TIME) STAT 11/13/2024 1:38 PM CDT APTT (PTT) STAT 11/13/2024 1:38 PM CDT EKG 12 LEAD STAT 11/13/2024 1:[address] CHEST ABDOMEN AND PELVIS W CONTRAST Stat with Interpretation 11/13/2024 12:34 PM CDT URINE DRUG SCREEN STAT 11/13/2024 12:15 PM CDT URINALYSIS REFLEX IF INDICATED BY ABNORMAL RESULTS STAT 11/13/2024 12:15 PM CDT CULTURE, URINE STAT 11/13/2024 12:15 PM CDT SALICYLATE LEVEL STAT 11/13/2024 12:08 PM CDT ACETAMINOPHEN (TYLENOL) STAT 11/13/2024 12:08 PM CDT CREATINE KINASE (CK) TOTAL STAT 11/13/2024 12:08 PM CDT C-REACTIVE PROTEIN (CRP) QUANT STAT 11/13/2024 12:08 PM CDT PHOSPHORUS (PO4) STAT 11/13/2024 12:08 PM CDT N-TERMINAL- PRO B TYPE NATRIURETIC PEPTIDE STAT 11/13/2024 12:08 PM CDT TROPONIN I, HIGH SENSITIVITY (HSTRP) STAT 11/13/2024 12:[address] CERVICAL SPINE WO/ CONTRAST Stat with Interpretation 11/13/2024 11:[address] HEAD OR BRAIN WO CONTRAST Stat with Interpretation 11/13/2024 11:23 AM CDT GOLD TOP TUBE STAT 11/13/2024 10:52 AM CDT BLUE TOP TUBE STAT 11/13/2024 10:52 AM CDT FOLIC ACID (FOLATE) STAT 11/13/2024 10:52 AM CDT VITAMIN B12 STAT 11/13/2024 10:52 AM CDT EXTRA TUBES STAT 11/13/2024 10:52 AM CDT LACTIC ACID (LACTATE) STAT 11/13/2024 10:52 AM CDT CBC WITH AUTO DIFFERENTIAL STAT 11/13/2024 10:15 AM CDT ETHYL ALCOHOL (ETHANOL) STAT 11/13/2024 10:15 AM CDT LIPASE STAT 11/13/2024 10:15 AM CDT MAGNESIUM (MG) STAT 11/13/2024 10:15 AM CDT TROPONIN I, HIGH SENSITIVITY (HSTRP) STAT 11/13/2024 10:15 AM CDT CMP (COMPREHENSIVE METABOLIC PANEL) STAT 11/13/2024 10:15 AM CDT COMPLETE BLOOD COUNT (CBC) WITH DIFF STAT 11/13/2024 10:15 AM CDT EKG 12 LEAD STAT 11/13/2024 10:01 AM CDT RHYTHM STRIP 11/13/2024 12:00 AM CDT RHYTHM STRIP 11/13/2024 12:00 AM CDT EKG SCAN 11/13/2024 12:00 AM CDT EKG SCAN 11/13/2024 12:00 AM CDT RHYTHM STRIP 11/13/2024 12:00 AM CDT from Last 3 Months Results * TROPONIN I, HIGH SENSITIVITY (HSTRP) (12/18/2024 6:56 AM CDT) Only the most recent of6 resultswithin the time period is included. Pathologist [facility] TROPONIN I, HIGH SENSITIVITY- MALCOLM 3.7 <=14.0 ng/L 12/18/2024 7:28 AM CDT [facility] [[email or web address]] LAB Comment: High-sensitivity troponin I results are reported in ng/L making the result appear to be 1,000 times higher than the contemporary troponin I value which is reported in ng/ml. Results from [place]. Blood Venipuncture / Unknown 12/18/2024 6:56 AM CDT 12/18/2024 7:01 AM CDT us Bronson Ovalle MD CHEMISTRY ORDERABLES Breanna l Result [facility] [[email or web address]] LAB #[address] [place] [address] * CT ANGIO CHEST W/WO CONTRAST WITH PP (POST PROCESSING) (12/18/2024 6:50 AM CDT) Anatomical Region Laterality Modality vascular N/A Computed Tomogra phy 12/18/2024 6:50 AM CDT Impressions 12/18/2024 3:23 PM CDT Impression: 1. No pulmonary embolism demonstrated. No CT evidence of right heart strain. 2. Diffuse bronchial wall thickening. No focal pulmonary consolidation. Emphysema. 3. Hepatic steatosis. The preliminary report and any related communication were provided by [facility]'s After Hours service, as documented in the medical record. Narrative 12/18/2024 3:23 PM CDT DICTATING PHYSICIAN: Solo De Los Santos M.D. - [facility] Examination: CT angiography of the chest with contrast, per pulmonary embolism protocol. Clinical Indication: 54-year-old female with history of chest pain. Shortness breath. Comparison: 11/13/2024. Technique: Chest CT angiography with IV contrast. Standard and MIP images were reviewed. IV contrast: 85 mL of Isovue-370. Dose reduction: This CT exam was performed using one or more of the following dose-reduction techniques: Automated exposure control, adjustment of the mA and/or kV according to patient size, and/or use of iterative reconstruction technique. Total exam DLP: 260 mGy-cm. Findings: PULMONARY ARTERIES: Exam quality: Satisfactory. Pulmonary embolism: No acute or chronic pulmonary embolism. Central pulmonary arteries: Normal caliber. HEART: Heart: No CT evidence of right heart strain. Normal size. Aorta: Normal in caliber. Mild atherosclerotic calcifications involving the thoracic aorta. The left vertebral artery originates off the arch. Coronary arteries: Coronary artery calcifications within the proximal LAD. Pericardium: Normal. No effusion, thickening, or calcification. MEDIASTINUM: Support tubes and lines: None. Base of neck/thyroid: Normal. Lymph nodes: No suspicious supraclavicular, axillary, internal mammary, mediastinal, or hilar adenopathy. Trachea: Normal. Esophagus: Small, sliding-type hiatal hernia. LUNGS AND PLEURA: Lungs: Centrilobular emphysema. Diffuse bronchial wall thickening. No pulmonary consolidation. Minimal atelectasis/scarring within the lingula. Minimal atelectasis within the dependent aspect of the right lower lobe. Pleura: No effusion, thickening, or calcification. No pneumothorax. UPPER ABDOMEN: Hepatic steatosis. Calcified granuloma within the normal sized spleen. BONES/SOFT TISSUES: No acute or suspicious osseous lesions demonstrated. Procedure Note Solo De Los Santos MD - 12/18/2024 DICTATING PHYSICIAN: Solo De Los [facility] Examination: CT angiography of the chest with contrast, per pulmonaryembolism protocol. Clinical Indication: 54-year-old female with history of chest pain.Shortness breath. Comparison: 11/13/2024. Technique: Chest CT angiography with IV contrast. Standard and MIP images werereviewed. IV contrast: 85 mL of Isovue-370. Dose reduction: This CT exam was performed using one or more of thefollowing dose-reduction techniques: Automated exposure control,adjustment of the mA and/or kV according to patient size, and/or use ofiterative reconstruction technique. Total exam DLP: 260 mGy-cm. Findings: PULMONARY ARTERIES: Exam quality: Satisfactory. Pulmonary embolism: No acute or chronic pulmonary embolism. Central pulmonary arteries: Normal caliber. HEART: Heart: No CT evidence of right heart strain. Normal size. Aorta: Normal in caliber. Mild atherosclerotic calcificationsinvolving the thoracic aorta. The left vertebral artery originates offthe arch. Coronary arteries: Coronary artery calcifications within the proximalLAD. Pericardium: Normal. No effusion, thickening, or calcification. MEDIASTINUM: Support tubes and lines: None. Base of neck/thyroid: Normal. Lymph nodes: No suspicious supraclavicular, axillary, internalmammary, mediastinal, or hilar adenopathy. Trachea: Normal. Esophagus: Small, sliding-type hiatal hernia. LUNGS AND PLEURA: Lungs: Centrilobular emphysema. Diffuse bronchial wall thickening.No pulmonary consolidation. Minimal atelectasis/scarring within thelingula. Minimal atelectasis within the dependent aspect of the rightlower lobe. Pleura: No effusion, thickening, or calcification. No pneumothorax. UPPER ABDOMEN: Hepatic steatosis. Calcified granuloma within the normalsized spleen. BONES/SOFT TISSUES: No acute or suspicious osseous lesions demonstrated. Impression: 1. No pulmonary embolism demonstrated. No CT evidence of right heartstrain. 2. Diffuse bronchial wall thickening. No focal pulmonary consolidation.Emphysema. 3. Hepatic steatosis. The preliminary report and any related [facility], as documented in the medical record. Bronson Ovalle MD IMG CT ORDERABLES Final R esult * XR CHEST SINGLE VIEW PORTABLE (12/18/2024 5:47 AM CDT) Anatomical Region Laterality Modality Chest N/A Computed Radiogr aphy 12/18/2024 5:47 AM CDT Impressions 12/18/2024 8:19 AM CDT IMPRESSION: No radiographic evidence of an acute cardiopulmonary process. Narrative 12/18/2024 8:19 AM CDT DICTATING PHYSICIAN: Solo De Los Santos M.D. - [facility] EXAM: XR CHEST SINGLE VIEW PORTABLE 12/18/2024 5:47 AM HISTORY: Chest pain. COMPARISON: 07/15/2020. FINDINGS: The cardiomediastinal silhouette is stable in size and contour. There is no significant pulmonary vascular congestion. There is no pneumothorax. Emphysema. Mild bibasilar atelectasis. No pleural effusion. Degenerative changes within the thoracic spine. Procedure Note Solo De Los Santos MD - 12/18/2024 DICTATING PHYSICIAN: Solo De Los Santos M.D[facility] EXAM: XR CHEST SINGLE VIEW PORTABLE 12/18/2024 5:47 AM HISTORY: Chest pain. COMPARISON: 07/15/2020. FINDINGS: The cardiomediastinal silhouette is stable in size and contour. There isno significant pulmonary vascular congestion. There is no pneumothorax.Emphysema. Mild bibasilar atelectasis. No pleural effusion.Degenerative changes within the thoracic spine. IMPRESSION: No radiographic evidence of an acute cardiopulmonary process. us Bronson Ovalle MD IMG DIAGNOSTIC ORDERABLES Final Result * NT-proBNP (12/18/2024 5:03 AM CDT) Only the most recent of2 resultswithin the time period is included. NT PROBNP 74.3 <450.0 pg/mL 12/18/2024 5:48 AM CDT [facility] Comment: AGE pg/mL INTERPRETATION All <300 Negative: HF (Heart Failure) unlikely 18 to <50 >=300.0 to <450.0 Indeterminate. Consider other causes of NT-proBNP elevation 50 to 75 >=300.0 to <900.0 Indeterminate. Consider other causes of NT-proBNP elevation >75 >=300.0 to <1800.0 Indeterminate. Consider other causes of NT-proBNP elevation 18 to <50 >=450.0 Positive: HF likely 50 to 75 >=900.0 Positive: HF likely >75 >=1800.0 Positive: HF likely Total protein levels at or above 12.6 mg/dl may falsely decrease NT-proBNP values. Blood Venipuncture / Unknown 12/18/2024 5:03 AM CDT 12/18/2024 5:22 AM CDT us Bronson Ovalle MD CHEMISTRY ORDERABLES Breanna l Result Performing Organization Address City/[facility]/ZIP Co de Phone Number [facility] [address] [place] [address] * Gold Top Tube (12/18/2024 5:03 AM CDT) Only the most recent of2 resultswithin the time period is included. Blood No Phlebotomy Charged / Unknown 12/18/2024 5:03 AM CDT 12/18/2024 5:21 AM CDT Bronson Ovalle MD CHEMISTRY ORDERABLES Breanna l Result Performing Organization Address City/[facility]/ZIP Co de Phone Number [facility] [address] [place] [address] * (ABNORMAL) CBC with Auto Differential (12/18/2024 5:03 AM CDT) Only the most recent of6 resultswithin the time period is included. WBC 3.88(L) 4.00 - 12.00 10(3)/mcL 12/18/2024 5:55 AM CDT [facility] RBC 3.71(L) 3.80 - 5.30 10(6)/mcL 12/18/2024 5:55 AM CDT [facility] HEMOGLOBIN (HGB) 14.3 12.0 - 15.8 g/dL 12/18/2024 5:55 AM CDT [facility] HEMATOCRIT (HCT) 40.0 36.0 - 47.0 % 12/18/2024 5:55 AM CDT [facility] MCV 107.8(H) 82.0 - 96.0 fL 12/18/2024 5:55 AM CDT [facility] MCH 38.5(H) 26.0 - 34.0 pg 12/18/2024 5:55 AM CDT [facility] MCHC 35.8 31.0 - 36.0 g/dL 12/18/2024 5:55 AM CDT [facility] PLATELET COUNT 156 140 - 440 10(3)/mcL 12/18/2024 5:55 AM CDT [facility] RDW 12.3 11.8 - 15.5 % 12/18/2024 5:55 AM CDT [facility] MPV 9.3(L) 9.7 - 12.4 fL 12/18/2024 5:55 AM CDT [facility] NEUTROPHILS 42.7(L) 47.0 - 73.0 % 12/18/2024 5:55 AM CDT [facility] LYMPHOCYTES 39.7 18.0 - 42.0 % 12/18/2024 5:55 AM CDT [facility] MONOCYTES 12.9(H) 4.0 - 12.0 % 12/18/2024 5:55 AM CDT [facility] EOSINOPHILS 2.1 0.0 - 5.0 % 12/18/2024 5:55 AM CDT [facility] BASOPHILS 1.8(H) 0.0 - 1.0 % 12/18/2024 5:55 AM CDT [facility] IMMATURE GRANULOCYTE 0.8(H) 0.0 - 0.4 % 12/18/2024 5:55 AM CDT [facility] Comment:Immature Granulocyte s includes Metamyelocytes, Myelocytes, and Promyelocytes. ABSOLUTE NEUTROPHILS 1.66 1.60 - 7.70 10(3)/mcL 12/18/2024 5:55 AM CDT [facility] ABSOLUTE LYMPHOCYTES 1.54 1.30 - 3.20 10(3)/mcL 12/18/2024 5:55 AM CDT [facility] ABSOLUTE MONOCYTES 0.50 0.20 - 1.00 10(3)/mcL 12/18/2024 5:55 AM CDT [facility] ABSOLUTE EOSINOPHIL 0.08 0.00 - 0.40 10(3)/mcL 12/18/2024 5:55 AM CDT [facility] ABSOLUTE BASOPHILS 0.07 0.00 - 0.10 10(3)/mcL 12/18/2024 5:55 AM CDT [facility] ABSOLUTE IMMATURE GRANULOCYTE 0.03 0.00 - 0.03 10 (3) mcL. 12/18/2024 5:55 AM CDT [facility] NRBC PER 100 WBC 0 12/19/19 5:55 AM CDT [facility] RESULTS ARE CONSISTENT WITH PERIPHERAL SMEAR REVIEW Yes 12/18/2024 5:55 AM CDT [facility] RBC MORPHOLOGY CONSISTENT WITH INDICES Yes 12/18/2024 5:55 AM CDT [facility] Blood Venipuncture / Unknown 12/18/2024 5:03 AM CDT 12/18/2024 5:22 AM CDT Narrative [facility] - 12/18/2024 5:55 AM CDT Macrocytosis Bronson Ovalle MD HEMATOLOGY ORDERABLES Fin al Result Performing Organization Address City/[facility]/ZIP Co de Phone Number [facility] [address] [place] [address] * APTT (PTT) (12/18/2024 5:03 AM CDT) Only the most recent of4 resultswithin the time period is included. PTT 27 24 - 36 sec 12/18/2024 5:40 AM CDT [facility] Blood Venipuncture / Unknown 12/18/2024 5:03 AM CDT 12/18/2024 5:22 AM CDT Narrative [facility] - 12/18/2024 5:40 AM CDT Therapeutic range for unfractionated heparin at 0.3-0.7 U/mL is an aPTT value in the range of 71-100 seconds. Critical value for the PTT test is >= 122 seconds. Bronson Ovalle MD HEMATOLOGY ORDERABLES Fin al Result Performing Organization Address City/[facility]/ZIP Co de Phone Number [facility] [address] [place] [address] * PT / INR (12/18/2024 5:03 AM CDT) Only the most recent of3 resultswithin the time period is included. PROTIME-PATIENT 13.1 11.6 - 14.8 sec 12/18/2024 5:40 AM CDT [facility] INR 1.0 0.9 - 1.2 12/18/2024 5:40 AM CDT [facility] Comment: Therapeutic Ranges INR = 2.0-3.0: Venous thromb, atrial fib, pul embolism, tissue heart valve, ami. INR = 2.5-3.5: Mechanical heart valve Critical value for INR is >/= 4.5 Blood Venipuncture / Unknown 12/18/2024 5:03 AM CDT 12/18/2024 5:22 AM CDT Bronson Ovalle MD HEMATOLOGY ORDERABLES Fin al Result Performing Organization Address [facility] Co de Phone Number [facility] [address] [place] [address] * (ABNORMAL) D-Dimer (12/18/2024 5:03 AM CDT) [facility] D DIMER 2.79(H) <0.50 mcg/mL FEU 12/18/2024 5:40 AM CDT [facility] Blood Venipuncture / Unknown 12/18/2024 5:03 AM CDT 12/18/2024 5:22 AM CDT Narrative [facility] - 12/18/2024 5:40 AM CDT The FDA has approved this method to exclude the diagnosis of DVT and/or PE at the cutoff value of <0.50 mcg/mL FEU. us Bronson Ovalle MD HEMATOLOGY ORDERABLES Fin al Result Performing Organization Address [facility] de Phone Number [facility] [address] [place] [address] * (ABNORMAL) CMP (Comprehensive Metabolic Panel) (12/18/2024 5:03 AM CDT) Only the most recent of4 resultswithin the time period is included. [facility] SODIUM 142 136 - 145 mmol/L 12/18/2024 5:46 AM CDT [facility] POTASSIUM 3.8 3.5 - 5.1 mmol/L 12/18/2024 5:46 AM CDT [facility] CHLORIDE 107 98 - 107 mmol/L 12/18/2024 5:46 AM CDT [facility] CO2, VENOUS 22 22 - 30 mmol/L 12/18/2024 5:46 AM CDT [facility] ANION GAP 16.8 <18.0 mmol/L 12/18/2024 5:46 AM CDT [facility] GLUCOSE 108(H) 70 - 99 mg/dL 12/18/2024 5:46 AM CDT [facility] BUN 7(L) 10 - 20 mg/dL 12/18/2024 5:46 AM T [facility] CREATININE, BLOOD 0.57(L) 0.60 - 1.00 mg/dL 12/18/2024 5:46 AM CDT [facility] BUN/CREATININE RATIO 12 12 - 20 ratio 12/18/2024 5:46 AM CDT [facility] TOTAL PROTEIN 8.0 6.0 - 8.0 g/dL 12/18/2024 5:46 AM T [facility] ALBUMIN 4.4 3.5 - 5.0 g/dL 12/18/2024 5:46 AM [facility] A/G RATIO 1.2 1.0 - 2.2 12/18/2024 5:46 AM CDT [facility] CALCIUM 8.6(L) 8.7 - 10.5 mg/dL 12/18/2024 5:46 AM T [facility] T BILI 0.7 0.2 - 1.2 mg/dL 12/18/2024 5:46 AM [facility] SGOT (AST) 248(H) <43 U/L 12/18/2024 5:46 AM [facility] Comment: Specimen is hemolyzed. In vitro hemolysis could affect results. Clinical correlation advised. SGPT (ALT) 85(H) <56 U/L 12/18/2024 5:46 AM [facility] ALKALINE PHOSPHATASE 92 40 - 150 U/L 12/18/2024 5:46 AM [facility] GFR, ESTIMATED >60 >=60 12/18/2024 5:46 AM [facility] Comment: Creatinine Clearance is the preferred criteria for selecting drug dose adjustments in renally impaired patients. The GFR is provided as additional pertinent clinical information. GFR is reported in mL/min/1.73 sq m. Calculation based on the 2020 Chronic Kidney Disease Epidemiology Collaboration (CKD-EPI) equation refit without adjustment for race. GFR, EST. >60 >=60 5:46 AM CDT [facility] Comment: Creatinine Clearance is the preferred criteria for selecting drug dose adjustments in renally impaired patients. The GFR is provided as additional pertinent clinical information. GFR is reported in mL/min/1.73 sq m. Calculation based on the 2009 Chronic Kidney Disease Epidemiology Collaboration (CKD-EPI). GFR, EST. NONAFRICAN >60 >=60 12/18/2024 5:46 AM CDT [facility] Comment: Creatinine Clearance is the preferred criteria for selecting drug dose adjustments in renally impaired patients. The GFR is provided as additional pertinent clinical information. GFR is reported in mL/min/1.73 sq m. Calculation based on the 2009 Chronic Kidney Disease Epidemiology Collaboration (CKD-EPI). Blood Venipuncture / Unknown 12/18/2024 5:03 AM CDT 12/18/2024 5:22 AM CDT us Bronson Ovalle MD CHEMISTRY ORDERABLES Breanna l Result [facility] [address] [place] [address] * EKG 12 LEAD (12/18/2024 4:57 AM CDT) Only the most recent of3 resultswithin the time period is included. Ventricular Rate 72 BPM EXTERNAL EKG Atrial Rate 72 BPM EXTERNAL EKG P-R Interval 164 ms EXTERNAL EKG QRS Duration 88 ms EXTERNAL EKG Q-T Duration 406 ms EXTERNAL EKG QTC CALCULATION 444 ms EXTERNAL EKG P Brimhall 55 degrees EXTERNAL EKG R [place] 7 degrees EXTERNAL EKG T [place] 38 degrees EXTERNAL EKG 12/18/2024 4:57 AM CDT Impressions EXTERNAL EKG - 12/18/2024 10:07 PM CDT Normal sinus rhythm Normal ECG When compared with ECG of 13-NOV-2024 13:09, No significant change was found Confirmed by Lawrence Castillo ([id number]) on 12/18/2024 10:07:40 PM Narrative Procedure Note Lawrence Castillo MD PhD - 12/18/2024 IMPRESSION: Normal sinus rhythm Normal ECG When compared with ECG of 13-NOV-2024 13:09, No significant change was found Confirmed by Lawrence Castillo ([id number]) on 12/18/2024 10:07:40 PM us Bronson Ovalle MD IMG ECG ORDERABLES Final Result Performing Organization Address City/[facility] de Phone Number EXTERNAL EKG * EKG SCAN (12/18/2024 12:00 AM CDT) Only the most recent of3 resultswithin the time period is included. 12/18/2024 Provider Scan IMG ECG ORDERABLES Final Result Performing Organization Address City/[facility] de Phone Number RESULTING AGENCY * CT - CHEST (12/18/2024 12:00 AM CDT) 12/18/[address] ORDERABLES Final Result Performing Organization Address [facility] de Phone Number SCAN * PHOSPHORUS (PO4) (11/16/2024 3:31 AM CDT) Only the most recent of2 resultswithin the time period is included. PHOSPHORUS 3.1 2.5 - 4.5 mg/dL 11/16/2024 4:21 AM CDT [facility] Blood Venipuncture / Unknown 11/16/2024 3:31 AM CDT 11/16/2024 3:58 AM CDT Johanna Ontiveros WIRE CUTTER, SHUTTLE HAND CHEMISTRY ORDERABLES Final Result Performing Organization Address City/[facility] Co de Phone Number [facility] [address] [place] [address] * MAGNESIUM (MG) (11/16/2024 3:31 AM CDT) Only the most recent of2 resultswithin the time period is included. MAGNESIUM 1.6 1.6 - 2.6 mg/dL 11/16/2024 4:21 AM CDT [facility] Blood Venipuncture / Unknown 11/16/2024 3:31 AM CDT 11/16/2024 3:58 AM CDT Johanna Ontiveros APRN, CNP CHEMISTRY ORDERABLES Final Result Performing Organization Address City/[facility] Co de Phone Number [facility] [address] [place] [address] * RHYTHM STRIP (11/16/2024 12:00 AM CDT) Only the most recent of12 resultswithin the time period is included. 11/16/2024 Provider Scan IMG ECG ORDERABLES Final Result Performing Organization Address [facility] Co de Phone Number RESULTING AGENCY * (ABNORMAL) BMP with Ca, Total (11/15/2024 4:04 AM CDT) Only the most recent of2 resultswithin the time period is included. SODIUM 135(L) 136 - 145 mmol/L 11/15/2024 4:28 AM CDT [facility] POTASSIUM 3.3(L) 3.5 - 5.1 mmol/L 11/15/2024 4:28 AM CDT [facility] CHLORIDE 103 98 - 107 mmol/L 11/15/2024 4:28 AM CDT [facility] CO2, VENOUS 23 22 - 30 mmol/L 11/15/2024 4:28 AM CDT [facility] ANION GAP 12.3 <18.0 mmol/L 11/15/2024 4:28 AM T [facility] GLUCOSE 119(H) 70 - 99 mg/dL 11/15/2024 4:28 AM T [facility] BUN 11 10 - 20 mg/dL 11/15/2024 4:28 AM [facility] CREATININE, BLOOD 0.44(L) 0.60 - 1.00 mg/dL 11/15/2024 4:28 AM [facility] BUN/CREATININE RATIO 25(H) 12 - 20 ratio 11/15/2024 4:28 AM [facility] CALCIUM 8.6(L) 8.7 - 10.5 mg/dL 11/15/2024 4:28 AM [facility] GFR, ESTIMATED >60 >=60 11/15/2024 4:28 AM [facility] Comment: Creatinine Clearance is the preferred criteria for selecting drug dose adjustments in renally impaired patients. The GFR is provided as additional pertinent clinical information. GFR is reported in mL/min/1.73 sq m. Calculation based on the 2020 Chronic Kidney Disease Epidemiology Collaboration (CKD-EPI) equation refit without adjustment for race. GFR, EST. >60 >=60 4:28 AM [facility] Comment: Creatinine Clearance is the preferred criteria for selecting drug dose adjustments in renally impaired patients. The GFR is provided as additional pertinent clinical information. GFR is reported in mL/min/1.73 sq m. Calculation based on the 2009 Chronic Kidney Disease Epidemiology Collaboration (CKD-EPI). GFR, EST. NONAFRICAN >60 >=60 11/15/2024 4:28 AM [facility] Comment: Creatinine Clearance is the preferred criteria for selecting drug dose adjustments in renally impaired patients. The GFR is provided as additional pertinent clinical information. GFR is reported in mL/min/1.73 sq m. Calculation based on the 2009 Chronic Kidney Disease Epidemiology Collaboration (CKD-EPI). Blood Venipuncture / Unknown 11/15/2024 4:04 AM CDT 11/15/2024 4:06 AM CDT us Hudsonace Soo Singh WIRE CUTTER, SHUTTLE HAND CHEMISTRY ORDERABLES Fi nal Result [facility] [email or web address]] [facility] #[address] [place] [address] * CARDIAC CATH (11/14/2024 9:52 AM CDT) Anatomical Region Laterality Modality CARDIO N/A X-Ray Angiograph y Narrative 11/14/2024 10:01 AM CDT Cardiac Catheterization Post-procedure note Date of Procedure: 11/13/24 Surgeon(s): Lawrence Castillo MD PhD Procedure(s): Cardiac catheterization Pre-operative Diagnosis: NSTEMI Post-operative Diagnosis: stress cardiomyopathy Access: radial Estimated Blood Loss: Minimal Procedure details: Access obtained from the right radial artery with a 6 English sheath. Heparin and verapamil was used for anticoagulation and as an antispasmodic. A JR4 catheter was passed into the left ventricle across aortic valve. LVEDP was documented. The catheter was then pulled back and placed in the right coronary artery. Selective coronary angiography was performed in multiple planes. The catheter was then removed and a JL 3.5 catheter was placed in the left coronary artery. Selective coronary angiography was performed in multiple planes. The catheter was then removed. Sedation: 1 mg Versed, 25 Mcg Fentanyl. Sedation was administered by the nursing staff in the cardiac catheterization lab under my supervision. It was monitored by an independent trained provider as documented in the woodworking shop laborer report. Total sedation time was13 minutes Fluroscopy: Air Kerma: 80.5 mgy. Fluoroscopy time: 2.3 min Contrast Use: 45 Ml Findings: Hemodynamics: Heart rate: 90 , BPM Blood pressure:98/75 mmHg, LVEDP: 15 mmHg Coronary anatomy: RCA: Moderate/large sized, dominant vessel giving PDA and 2 PLV's. Widely patent, no notable atherosclerosis. Left main: Moderate size, giving LAD and LCX. Patent without notable plaquing. Lad: Moderate size, giving 1 major diagonal. Patent with luminal irregularities. 30% focal narrowing in mid LAD. Left circumflex: Moderate size, nondominant, giving 2 OM. Patent with luminal irregularities. Complications: none immediate Impression/assessment /plan Widely patient coronary arteries, only 30% focal narrowing in mid LAD. Myocardial injury and systolic dysfunction attributed to stress cardiomyopathy (Takotsubo). Recommend medical therapy, supportive care. Signed: Lawrence Castillo MD PhD, 11/14/2024, 9:55 AM CDT Livkenisha Greenberg Too OCONNELL, SHUTTLE HAND IMG CARDIAC CA TH Final Result * MRSA NASAL PCR (11/13/2024 5:19 PM CDT) MRSA PCR RESULT Negative Negative, Invalid 11/13/2024 6:38 PM CDT [facility] Other NASOPHARYNGEAL SWAB / Unknown Non-Phlebotomy Collection / Unknown 11/13/2024 5:19 PM CDT 11/13/2024 5:20 PM CDT Yanique Singh APRN, WES MICROBIOLOGY - GENERAL ORDERABLES Final Result Performing Organization Address City/[facility]/ZIP Co de Phone Number [facility] [address] [place] [address] * Lactic Acid (Lactate) (11/13/2024 5:12 PM CDT) Only the most recent of2 resultswithin the time period is included. LACTIC ACID 0.7 0.7 - 2.0 mmol/L 11/13/2024 6:02 PM CDT [facility] Comment: Specimen is hemolyzed. In vitro hemolysis could affect results. Clinical correlation advised. Blood Venipuncture / Unknown 11/13/2024 5:12 PM CDT 11/13/2024 5:20 PM CDT Kp Goel MD CHEMISTRY ORDERABLES Final Re sult [facility] [address] [place] [address] * Culture, Blood (11/13/2024 5:12 PM CDT) Only the most recent of2 resultswithin the time period is included. CULTURE RESULTS NO GROWTH WITHIN 5 DAYS, FINAL RESULT 11/18/2024 6:01 PM CDT [facility] Culture (Peripheral Vein) Venipuncture / Unknown 11/13/2024 5:12 PM CDT 11/13/2024 5:20 PM CDT us Kp Goel MD MICROBIOLOGY - GENERAL ORDERA BLES Final Result [facility] [address] [place] [address], * ADULT TRANS THORACIC ECHO 2D COMPLT W CONT (11/13/2024 4:57 PM CDT) AV Peak Grad mmHg 4.16 mmHg RESULTING AGENCY Mean Aortic Valve Gradient (MAVG) 3 mmHg RESULTING AGENCY LV end gabriella diam cm 4.9 cm RESULTING AGENCY LV end sys diam cm 2.8 cm RESULTING AGENCY Aortic Root Diam cm 2.7 cm RESULTING AGENCY LA vol index ml/m2 25 ml/m2 RESULTING AGENCY LVOT Peak Shamir m/sec 0.75 m/sec RESULTING AGENCY AV Peak Shamir m/sec 1.02 m/sec RESULTING AGENCY MV Mean Grad mmHg 1 mmHg RESULTING AGENCY MVA by PHT cm2 3.79 cm2 RESUL TING AGENCY E/A Ratio 0.89 RESULTING AGENCY E/E' 8.4 RESULTING AGENCY AV Area (VTI) cm2 2.12 cm2 RESULTING AGENCY SEPTUM DIASTOLIC CM 0.8 cm RESULTING AGENCY PW DIASTOLIC CM 0.9 cm RESU LTING AGENCY LA VOLUME 41.9 ml RESULTING AGENCY LV EF(estimated)% 50 RESULTING AGENCY Anatomical Region Laterality Modality CARDIO N/A Ultrasound Narrative 11/13/2024 5:06 PM CDT Transthoracic Echocardiography Report (TTE) Patient name TETO Dennis 1970 Patient ID (UPI) [id number] Indications: NSTEMI, Chest pain and COPD. Study Date11/13/2024 Technical quality: Good visualization Type of Study: TTE procedure: Adult Trans Thoracic Echo 2D Complete. Priority:RoutineHR: 78 bpmBP: 102/71 mmHg Conclusions Summary - Normal LV size with low normal systolic function. Estimated LVEF 50% - Mid ventricular wall hypokinesis consistent with mid ventricular pattern of stress cardiomyopathy and less likely CAD pattern. - Normal right ventricular cavity size and normal systolic function. - No hemodynamically significant valvular abnormalities Findings Mitral Valve The mitral valve is normal. No evidence of mitral stenosis. No significant mitral regurgitation. Aortic Valve The aortic valve is trileaflet with normal leaflet excursion. There is no evidence of aortic valve stenosis. There is no significant aortic valve insufficiency. Tricuspid Valve The tricuspid valve is normal. There is no evidence of tricuspid stenosis. There is no significant tricuspid regurgitation. There is no evidence of pulmonary hypertension. Pulmonic Valve Not well visualized, no evidence by Doppler interrogation for significant stenosis or regurgitation. Left Atrium The left atrium size is normal. Left Ventricle - Normal LV size with low normal systolic function. Estimated LVEF 50% - Mid ventricular wall hypokinesis consistent with mid ventricular pattern of stress cardiomyopathy and less likely CAD pattern. Right Atrium The right atrium size is normal. Right Ventricle - Normal right ventricular cavity size and normal systolic function. Pericardial Effusion The pericardium is normal. There is no pericardial effusion visualized. Miscellaneous The IVC appears normal in size with >50% respiratory variation. Valves Mitral Valve Area (PHT): 3.79 cm^2 Area (continuity): 2.61 cm^2 Peak E-Wave: 0.54 m/s Mean Velocity: 0.45 m/s Peak A-Wave: 0.60 m/s Mean Gradient: 1 mmHg Peak Gradient: 1.17 mmHg Deceleration Time: 197 msec P1/2t: 58 msec Tissue Doppler E' Velocity: 0.06 m/s E/E':8.4 E/A Ratio: 0.89 E/Lat E': 8.4 E/Med E':8 Aortic Valve Area (continuity): 2.12 cm^2 Mean Velocity: 0.77 m/s Area (VTI):2.12 cm^2 Mean Gradient: 3 mmHg Peak Velocity: 1.02 m/s AV VTI: 21 cm Peak Gradient: 4.16 mmHg Tricuspid Valve Peak E-Wave: 0.47 m/s Peak Gradient: 0.89 mmHg Pulmonic Valve Peak Velocity: 0.91 m/s Mean Velocity: 0.59 m/s Peak Gradient: 3.36 mmHg Mean Gradient: 2 mmHg LVOT Peak Velocity: 0.75 m/s Mean Velocity: 0.53 m/s Peak Gradient: 2 mmHg Mean Gradient: 1 mmHg LVOT Diameter: 2 cm LVOT VTI: 14.2 cm Stroke Volume: 45 ml Stroke Volume Index: 26.79 ml/m^2 Structures Left Ventricle Diastolic Dimension: 4.9 cm Systolic Dimension: 2.8 cm Septum Diastolic: 0.8 cm Septum Systolic: 1.3 cm PW Diastolic: 0.9 cm PW Systolic: 1.2 cm Diastolic Length: 21.1 cm Systolic Length: 15.4 cm EF Calculated: 46.27% CI: 2.07 l/min*m^2 CO: 3.48 l/min RWT: 0.37 LV EDV: 102 ml FS: 42.86 % LV EDV Index: 61 m^2 LV Length: 7.08 cm LV ESV: 54.8 ml LVOT Diameter: 2 cm LV ESV Index: 33 m^2 Global Longitudinal Strain:-11.6 Right Ventricle RV basal dimension:2.7 cm RVOT (PLAX) diameter:3.1 cm RV mid dimension:2.8 cm RV longitudinal dimension:5.7 cm Tissue Doppler RV S': 18.8 TAPSE: 1.61 cm Left Atrium LA Systolic Pressure: 12.51 mmHg LA Area: 15.8 cm^2 LA Volume: 41.9 ml LA Index: 25ml/m^2 Right Atrium RA Area: 11.1 cm^2 Great Vessels Aorta Ascending Aorta: 2.7 cm Aorta Root:2.7 cm Ascending Aorta Index:1.61 cm/m^2 Demographics Age 53 Gender Female Race Height 64.49 in. Weight 138.21 lbs. 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 Study Date11/13/2024 Technical quality: Good visualization Type of Study: TTE procedure: Adult Trans Thoracic Echo 2D Complete. Priority:RoutineHR: 78 bpmBP: 102/71 mmHg Conclusions Summary - Normal LV size with low normal systolic function. Estimated LVEF 50% - Mid ventricular wall hypokinesis consistent with mid ventricular pattern of stress cardiomyopathy and less likely CAD pattern. - Normal right ventricular cavity size and normal systolic function. - No hemodynamically significant valvular abnormalities Findings Mitral Valve The mitral valve is normal. No evidence of mitral stenosis. No significant mitral regurgitation. Aortic Valve The aortic valve is trileaflet with normal leaflet excursion. There is no evidence of aortic valve stenosis. There is no significant aortic valve insufficiency. Tricuspid Valve The tricuspid valve is normal. There is no evidence of tricuspid stenosis. There is no significant tricuspid regurgitation. There is no evidence of pulmonary hypertension. Pulmonic Valve Not well visualized, no evidence by Doppler interrogation for significant stenosis or regurgitation. Left Atrium The left atrium size is normal. Left Ventricle - Normal LV size with low normal systolic function. Estimated LVEF 50% - Mid ventricular wall hypokinesis consistent with mid ventricular pattern of stress cardiomyopathy and less likely CAD pattern. Right Atrium The right atrium size is normal. Right Ventricle - Normal right ventricular cavity size and normal systolic function. Pericardial Effusion The pericardium is normal. There is no pericardial effusion visualized. Miscellaneous The IVC appears normal in size with >50% respiratory variation. Valves Mitral Valve Area (PHT): 3.79 cm^2 Area (continuity): 2.61 cm^2 Peak E-Wave: 0.54 m/s Mean Velocity: 0.45 m/s Peak A-Wave: 0.60 m/s Mean Gradient: 1 mmHg Peak Gradient: 1.17 mmHg Deceleration Time: 197 msec P1/2t: 58 msec Tissue Doppler E' Velocity: 0.06 m/s E/E':8.4 E/A Ratio: 0.89 E/Lat E': 8.4 E/Med E':8 Aortic Valve Area (continuity): 2.12 cm^2 Mean Velocity: 0.77 m/s Area (VTI):2.12 cm^2 Mean Gradient: 3 mmHg Peak Velocity: 1.02 m/s AV VTI: 21 cm Peak Gradient: 4.16 mmHg Tricuspid Valve Peak E-Wave: 0.47 m/s Peak Gradient: 0.89 mmHg Pulmonic Valve Peak Velocity: 0.91 m/s Mean Velocity: 0.59 m/s Peak Gradient: 3.36 mmHg Mean Gradient: 2 mmHg LVOT Peak Velocity: 0.75 m/s Mean Velocity: 0.53 m/s Peak Gradient: 2 mmHg Mean Gradient: 1 mmHg LVOT Diameter: 2 cm LVOT VTI: 14.2 cm Stroke Volume: 45 ml Stroke Volume Index: 26.79 ml/m^2 Structures Left Ventricle Diastolic Dimension: 4.9 cm Systolic Dimension: 2.8 cm Septum Diastolic: 0.8 cm Septum Systolic: 1.3 cm PW Diastolic: 0.9 cm PW Systolic: 1.2 cm Diastolic Length: 21.1 cm Systolic Length: 15.4 cm EF Calculated: 46.27% CI: 2.07 l/min*m^2 CO: 3.48 l/min RWT: 0.37 LV EDV: 102 ml FS: 42.86 % LV EDV Index: 61 m^2 LV Length: 7.08 cm LV ESV: 54.8 ml LVOT Diameter: 2 cm LV ESV Index: 33 m^2 Global Longitudinal Strain:-11.6 Right Ventricle RV basal dimension:2.7 cm RVOT (PLAX) diameter:3.1 cm RV mid dimension:2.8 cm RV longitudinal dimension:5.7 cm Tissue Doppler RV S': 18.8 TAPSE: 1.61 cm Left Atrium LA Systolic Pressure: 12.51 mmHg LA Area: 15.8 cm^2 LA Volume: 41.9 ml LA Index: 25ml/m^2 Right Atrium RA Area: 11.1 cm^2 Great Vessels Aorta Ascending Aorta: 2.7 cm Aorta Root:2.7 cm Ascending Aorta Index:1.61 cm/m^2 Demographics Age 53 Gender Female Race Height 64.49 in. Weight 138.21 lbs. 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 Hepatic steatosis. 2. Gallbladder sludge and cholelithiasis without evidence of cholecystitis. Narrative 11/13/2024 3:40 PM CDT DICTATING PHYSICIAN: Angelito Wiley M.D., [facility] EXAM: US ABDOMEN LIMITED LEVEL 3 THREE ORGAN 11/13/2024 3:35 PM Patient : 1970 Age: 53 years Gender: Female NUMBER OF IMAGES: 62 INDICATION: elevated LFT's, syncope COMPARISON: None TECHNIQUE: Grayscale and color Doppler ultrasound of the right upper quadrant abdomen was performed. FINDINGS: The visualized pancreas is unremarkable. Diffuse increased echogenicity of the liver is suggestive of steatosis The common duct is normal in size. The common bile duct measures 0.6 cm in diameter. The gallbladder wall is normal in thickness at 0.1 cm. No pericholecystic fluid is seen. A 1.1 x 0.2 cm echogenic region with posterior acoustic shadowing is seen within the gallbladder fundus suspicious for stone. Layering sludge is seen within the gallbladder. Per the senior health physics technician, sonographic Siegel's sign was not assessed. The right kidney measures 12 cm in length. No right-sided hydronephrosis is seen. Procedure Note Angelito White MD - 11/13/2024 DICTATING PHYSICIAN: Angelito Wiley M.D., [facility] EXAM: US ABDOMEN LIMITED LEVEL 3 THREE ORGAN 11/13/2024 3:35 PM Patient : 1970 Age: 53 years Gender: Female NUMBER OF IMAGES: 62 INDICATION: elevated LFT's, syncope COMPARISON: None TECHNIQUE: Grayscale and color Doppler ultrasound of the right upperquadrant abdomen was performed. FINDINGS: The visualized pancreas is unremarkable. Diffuse increased echogenicity of the liver is suggestive of steatosis The common duct is normal in size. The common bile duct measures 0.6 cm indiameter. The gallbladder wall is normal in thickness at 0.1 cm. No pericholecysticfluid is seen. A 1.1 x 0.2 cm echogenic region with posterior acoustic shadowing is seenwithin the gallbladder fundus suspicious for stone. Layering sludge isseen within the gallbladder. Per the senior health physics technician, sonographic Siegel's sign was notassessed. The right kidney measures 12 cm in length. No right-sided hydronephrosisis seen. IMPRESSION: 1. Hepatic steatosis. 2. Gallbladder sludge and cholelithiasis without evidence ofcholecystitis. us Kp Goel MD [facility] US ORDERABLES Final Resul t * Blood Alcohol Level (11/13/2024 3:30 PM CDT) Only the most recent of2 resultswithin the time period is included. ETHANOL <10 <10 mg/dL 11/13/2024 4:0 7 PM CDT [facility] [[email or web address]] LAB Blood Venipuncture / Unknown 11/13/2024 3:30 PM CDT 11/13/2024 3:38 PM CDT us Yanique Singh WIRE CUTTER, SHUTTLE HAND CHEMISTRY ORDERABLES Fi nal Result [facility] [[email or web address]] LAB #[address] [place] [address] * CT CHEST ABDOMEN AND PELVIS W CONTRAST (11/13/2024 12:34 PM CDT) Anatomical Region Laterality Modality Chest, Abdomen, Pelvis N/A Computed Tomography 11/13/2024 12:3 4 PM CDT Impressions 11/13/2024 12:54 PM CDT IMPRESSION: 1. Centrilobular emphysema, lungs grossly clear. Mild diffuse peribronchial thickening/bronchitis present, no significant parenchymal consolidation. 2. Marked hepatic steatosis without focal hepatic pathology 3. Pancreas enhances homogeneously without mass or ductal dilatation. Narrative 11/13/2024 12:[address] CHEST ABDOMEN AND PELVIS W CONTRAST: 11/13/2024 12:34 PM DICTATING PHYSICIAN: POWER AMEZQUITA [facility]. HISTORY: As below. 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 TECHNIQUE: Multiple helical axial images were obtained through the chest, abdomen and pelvis with intravenous contrast. Multiplanar reformats were performed. Dose reduction technique(s): CT dose reduction techniques used. Exam performed using one or more of the following dose reduction techniques: Automated exposure control, adjustment MA and/or AV according to patient size, and/or use of the iterative reconstruction. IV CONTRAST TYPE AND VOLUME: Administered contrast documentation is located within the patient's electronic health record. RADIATION DOSE: DLP 855.32 mGycm. FINDINGS: Thyroid/base of neck: No acute findings. Pulmonary Arteries: There is adequate opacification with no evidence for central pulmonary embolism. Thoracic aorta: Widely patent, normal course and caliber. Heart: The heart is grossly within normal limits. Pericardium: No fluid or thickening. Lymph nodes: No evidence for pathologic axillary, mediastinal, or hilar lymphadenopathy. Esophagus: Normal. Pleura: No pleural effusion or thickening. Lung parenchyma: Upper lobe predominant centrilobular emphysema. Lungs clear without nodule or mass. Trace bibasilar atelectasis/peribronchial thickening present. ABDOMEN: Liver: Marked hepatic steatosis. Main portal vein patent. No focal mass. No intrahepatic or extrahepatic biliary ductal dilatation. Gallbladder: No evidence for wall thickening or inflammation. Spleen: Within normal limits. No evidence for splenomegaly or focal lesion. Pancreas: No focal lesion or pancreatic ductal dilatation. Adrenal glands: No focal nodule. Kidneys: No focal suspicious lesion or obstructive uropathy evident. Abdominal aorta and IVC: Abdominal aorta is normal in caliber. IVC is grossly normal. Retroperitoneum: Normal Mesentery/Peritoneum: Normal. Stomach and small bowel: Small hiatal hernia. No focal small bowel pathology. PELVIS: Free fluid: No free fluid or fluid collection. Reproductive: No acute abnormality. Bladder: Normal contour and wall thickness. Lymphadenopathy: No pathologic lymphadenopathy. Colon: Normal in course and caliber. Appendix: Normal caliber and wall thickness. Skeletal structures and soft tissues: Age-appropriate degenerative changes. No suspicious osseous lytic or blastic process. No soft tissue abnormality. Procedure Note Power Amezquita MD - 11/13/2024 CT CHEST ABDOMEN AND PELVIS W CONTRAST: 11/13/2024 12:34 PM DICTATING PHYSICIAN: POWER AMEZQUITA [facility]. HISTORY: As below. 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 TECHNIQUE: Multiple helical axial images were obtained through the chest, abdomen andpelvis with intravenous contrast. Multiplanar reformats were performed. Dose reduction technique(s): CT dose reduction techniques used. Examperformed using one or more of the following dose reduction techniques:Automated exposure control, adjustment MA and/or AV according to patientsize, and/or use of the iterative reconstruction. IV CONTRAST TYPE AND VOLUME: Administered contrast documentation islocated within the patient's electronic health record. RADIATION DOSE: DLP 855.32 mGycm. FINDINGS: Thyroid/base of neck: No acute findings. Pulmonary Arteries: There is adequate opacification with no evidence forcentral pulmonary embolism. Thoracic aorta: Widely patent, normal course and caliber. Heart: The heart is grossly within normal limits. Pericardium: No fluid or thickening. Lymph nodes: No evidence for pathologic axillary, mediastinal, or hilarlymphadenopathy. Esophagus: Normal. Pleura: No pleural effusion or thickening. Lung parenchyma: Upper lobe predominant centrilobular emphysema. Lungsclear without nodule or mass. Trace bibasilar atelectasis/peribronchialthickening present. ABDOMEN: Liver: Marked hepatic steatosis. Main portal vein patent. No focal mass.No intrahepatic or extrahepatic biliary ductal dilatation. Gallbladder: No evidence for wall thickening or inflammation. Spleen: Within normal limits. No evidence for splenomegaly or focallesion. Pancreas: No focal lesion or pancreatic ductal dilatation. Adrenal glands: No focal nodule. Kidneys: No focal suspicious lesion or obstructive uropathy evident. Abdominal aorta and IVC: Abdominal aorta is normal in caliber. IVC isgrossly normal. Retroperitoneum: Normal Mesentery/Peritoneum: Normal. Stomach and small bowel: Small hiatal hernia. No focal small bowelpathology. PELVIS: Free fluid: No free fluid or fluid collection. Reproductive: No acute abnormality. Bladder: Normal contour and wall thickness. Lymphadenopathy: No pathologic lymphadenopathy. Colon: Normal in course and caliber. Appendix: Normal caliber and wall thickness. Skeletal structures and soft tissues: Age-appropriate degenerativechanges. No suspicious osseous lytic or blastic process. No soft tissueabnormality. IMPRESSION: 1. Centrilobular emphysema, lungs grossly clear. Mild diffuseperibronchial thickening/bronchitis present, no significant parenchymalconsolidation. 2. Marked hepatic steatosis without focal hepatic pathology 3. Pancreas enhances homogeneously without mass or ductal dilatation. Ana Maria Pimentel WIRE CUTTER, SHUTTLE HAND IMG CT ORDERABLES Final Result * (ABNORMAL) Urinalysis w/ Reflex (11/13/2024 12:15 PM CDT) SPECIFIC GRAVITY 1.005 1.003 - 1.030 11/13/2024 1:12 PM CDT [facility] [[email or web address]] LAB URINE PH 7.0 5.0 - 9.0 11/13/2024 1:12 PM CDT [facility] [[email or web address]] LAB WBC ESTERASE 25 /ul(A) Negative 11/13/2024 1:12 PM CDT [facility] NITRITE Negative Negative 11/13/2024 1:12 PM CDT [facility] PROTEIN, RANDOM URINE 15 mg/dL(A) Negative 11/13/2024 1:12 PM CDT [facility] URINE GLUCOSE, QUAL Negative Negative 11/13/2024 1:12 PM CDT [facility] URINE KETONES 50 mg/dL(A) Negative 11/13/2024 1:12 PM CDT [facility] UROBILINOGEN Normal Normal mg/dL 11/13/2024 1:12 PM CDT [facility] URINE BLOOD 25 /uL(A) Negative michelle/ul 11/13/2024 1:12 PM CDT [facility] URINALYSIS COLOR Yellow 11/13/2024 1:12 PM CDT [facility] URINALYSIS CLARITY Slightly Cloudy 11/13/2024 1:12 PM CDT [facility] WBC (Urine) 6-10(A) Negative, 0-5 /hpf 11/13/2024 1:12 PM CDT [facility] URINE RBC'S 6-10(A) Negative, 0-2 /hpf 11/13/2024 1:12 PM CDT [facility] EPITHELIAL CELLS Occasional /lpf 11/13/2024 1:12 PM CDT [facility] BACTERIA, URINE Few(A) Negative /hpf 11/13/2024 1:12 PM CDT [facility] Urine URINE SPECIMEN / Unknown Non-Phlebotomy Collection / Unknown 11/13/2024 12:15 PM CDT 11/13/2024 12:25 PM CDT us Ana Maria Pimentel APRN, CNP URINE ORDERABLES F inal Result [facility] [address] [place] [address] * Culture, Urine (11/13/2024 12:15 PM CDT) Pathologist [facility] CULTURE RESULTS ESCHERICHIA COLI 11/15/2024 4:29 PM CDT [facility] Urine URINE SPECIMEN / Unknown Non-Phlebotomy Collection / Unknown 11/13/2024 12:15 PM CDT 11/13/2024 12:25 PM CDT Narrative Organism Antibiotic Method Susceptibility Escherichia coli Ampicillin [facility] IIB 4 mcg/ml: Susceptible Escherichia coli Ampicillin/sulbactam [facility] II[facility] <=2 mcg/ml: Susceptible Escherichia coli Cefazolin [facility] II[facility] <16 mcg/ml: Susceptible Escherichia coli Cefepime [facility] II[facility] <=0.12 mcg/ml: Susceptible Escherichia coli Ceftriaxone [facility] II[facility] <=0.25 mcg/ml: Susceptible Escherichia coli Gentamicin [facility] II[facility] <=1 mcg/ml: Susceptible Escherichia coli Levofloxacin [facility] II[facility] <=0.12 mcg/ml: Susceptible Escherichia coli Meropenem [facility] II[facility] <=0.25 mcg/ml: Susceptible Escherichia coli Nitrofurantoin [facility] II[facility] <=16 mcg/ml: Susceptible Escherichia coli Piperacillin/Tazobactam [facility] II B <=4 mcg/ml: Susceptible Escherichia coli Trimeth/Sulfamethoxazole [facility] I IB <=20 mcg/ml: Susceptible us Ana Maria Pimentel APRN, W[facility] MICROBIOLOGY - GEN ERAL ORDERABLES Final Result Performing Organization Address City/State/[facility] Co de Phone Number [facility] [address] [place] [address], * (ABNORMAL) Urine Drug Screen (11/13/2024 12:15 PM CDT) [facility] UR AMPHETAMINE DETECTED(A) NON DETECTED 11/13/2024 1:05 PM CDT [facility] Comment: FOR MEDICAL USE ONLY. CUTOFF CONCENTRATION FOR DETECTED RESULT: AMPHETAMINE: 500 NG/ML UR BENZODIAZEPINES NON DETECTED NON DETECTED 11/13/2024 1:05 PM CDT [facility] Comment: FOR MEDICAL USE ONLY. CUTOFF CONCENTRATION FOR DETECTED RESULT: BENZODIAZAPINE: 200 NG/ML UR COCAINE METABOLITE NON DETECTED NON DETECTED 11/13/2024 1:05 PM CDT [facility] Comment: FOR MEDICAL USE ONLY. CUTOFF CONCENTRATION FOR DETECTED RESULT: COCAINE: 150 NG/ML UR OPIATES NON DETECTED NON DETECTED 11/13/2024 1:05 PM CDT [facility] Comment: FOR MEDICAL USE ONLY. CUTOFF CONCENTRATION FOR DETECTED RESULT: OPIATES: 300 NG/ML UR PHENCYCLIDINE NON DETECTED NON DETECTED 11/13/2024 1:05 PM CDT [facility] Comment: FOR MEDICAL USE ONLY. CUTOFF CONCENTRATION FOR DETECTED RESULT: PCP: 25 NG/ML UR CANNABINOID NON DETECTED NON DETECTED 11/13/2024 1:05 PM CDT [facility] Comment: FOR MEDICAL USE ONLY. CUTOFF CONCENTRATION FOR DETECTED RESULT: THC (MARIJUANA): 50 NG/ML UR BARBITURATE NON DETECTED NON DETECTED 11/13/2024 1:05 PM CDT [facility] Comment: FOR MEDICAL USE ONLY. CUTOFF CONCENTRATION FOR DETECTED RESULT: BARBITUATES: 200 NG/ML UR FENTANYL NON DETECTED NON DETECTED 11/13/2024 1:05 PM CDT [facility] Comment: FOR MEDICAL USE ONLY. CUTOFF CONCENTRATION FOR DETECTED RESULT: FENTANYL: 1.0 NG/ML Urine Non-Phlebotomy Collection / Unknown 11/13/2024 12:15 PM CDT 11/13/2024 12:48 PM CDT Ana Maria Pimentel WIRE CUTTER, SHUTTLE HAND URINE ORDERABLES F inal Result [facility] [address] [place] [address] * Acetaminophen (Tylenol) (11/13/2024 12:08 PM CDT) ACETAMINOPHEN 11 10 - 30 mcg/mL 11/13/2024 2:37 PM CDT [facility] Blood Venipuncture / Unknown 11/13/2024 12:08 PM CDT 11/13/2024 12:15 PM CDT Kp Goel MD CHEMISTRY ORDERABLES Final Re sult Performing Organization Address [facility] Co de Phone Number [facility] [address] [place] [address] * (ABNORMAL) Salicylate Level (11/13/2024 12:08 PM CDT) SALICYLATE <5.0(L) 15.0 - 30.0 mg/dL 11/13/2024 2:37 PM CDT [facility] Blood Venipuncture / Unknown 11/13/2024 12:08 PM CDT 11/13/2024 12:15 PM CDT Kp Goel MD CHEMISTRY ORDERABLES Final Re sult Performing Organization Address [facility] Co de Phone Number [facility] [address] [place] [address] * (ABNORMAL) Creatine Kinase (CK) Total (11/13/2024 12:08 PM CDT) CK (CPK) 306(H) 29 - 168 U/L 11/13/2024 2:37 PM CDT [facility] Blood Venipuncture / Unknown 11/13/2024 12:08 PM CDT 11/13/2024 12:15 PM CDT Kp Goel MD CHEMISTRY ORDERABLES Final Re sult Performing Organization Address City/[facility] Co de Phone Number [facility] [address] [place] [address] * (ABNORMAL) C-Reactive Protein (CRP) Quant (11/13/2024 12:08 PM CDT) C-REACTIVE PROTEIN 0.51(H) <0.50 mg/dL 11/13/2024 2:37 PM CDT [facility] Blood Venipuncture / Unknown 11/13/2024 12:08 PM CDT 11/13/2024 12:15 PM CDT us Kp Goel MD CHEMISTRY ORDERABLES Final Re sult [facility] [[email or web address]] LAB [address] [place] [address] * CT CERVICAL SPINE WO/ CONTRAST (11/13/2024 11:23 AM CDT) Anatomical Region Laterality Modality Spine N/A Computed Tomogra phy 11/13/2024 11:2 3 AM CDT Impressions 11/13/2024 11:49 AM CDT IMPRESSION: 1. No acute osseous abnormality of the cervical spine. 2. Degenerative fusion across the right C2-C3 facet joint. Narrative 11/13/2024 11:49 AM CDT DICTATING PHYSICIAN: Sol Guevara D.O. EXAM: CT of the cervical spine, without contrast, 11/13/2024 COMPARISON: None. HISTORY: Syncopal episode. PROCEDURE: Contiguous axial CT images of the cervical spine were obtained from base of skull to the T3 vertebral body without contrast. Multiplanar image reconstruction in the sagittal and coronal planes was then performed. Dose reduction technique(s) used. FINDINGS: Seven non-rib bearing cervical vertebrae are identified. Reversal of the cervical lordosis may be positional or related to altered muscle tone. The alignment of the cervical spine is within normal limits. There is no evidence of acute fracture or subluxation of the cervical spine. Degenerative fusion across the right C2-C3 facet joint. The facet joints are well aligned, with preservation of the intervertebral disks and facet joints. The atlantoaxial and atlanto-occipital articulations are well aligned. Intervertebral disc spaces are preserved. No evidence of significant spinal canal or foraminal compromise. The prevertebral soft tissues are unremarkable. The visualized portion of the skull base, temporomandibular joints, and mandible are intact. Visualized paranasal sinuses and mastoid air cells are clear. Pulmonary emphysema in the visualized lung apices. The thyroid gland shows no focal nodules or abnormal areas of heterogeneity. Procedure Note Sol Guevara DO - 11/13/2024 DICTATING PHYSICIAN: Sol Guevara D.O. EXAM: CT of the cervical spine, without contrast, 11/13/2024 COMPARISON: None. HISTORY: Syncopal episode. PROCEDURE: Contiguous axial CT images of the cervical spine were obtainedfrom base of skull to the T3 vertebral body without contrast. Multiplanarimage reconstruction in the sagittal and coronal planes was thenperformed. Dose reduction technique(s) used. FINDINGS: Seven non-rib bearing cervical vertebrae are identified.Reversal of the cervical lordosis may be positional or related to alteredmuscle tone. The alignment of the cervical spine is within normal limits.There is no evidence of acute fracture or subluxation of the cervicalspine. Degenerative fusion across the right C2-C3 facet joint. The facetjoints are well aligned, with preservation of the intervertebral disks andfacet joints. The atlantoaxial and atlanto-occipital articulations arewell aligned. Intervertebral disc spaces are preserved. No evidence ofsignificant spinal canal or foraminal compromise. The prevertebral softtissues are unremarkable. The visualized portion of the skull base, temporomandibular joints, andmandible are intact. Visualized paranasal sinuses and mastoid air cellsare clear. Pulmonary emphysema in the visualized lung apices. The thyroidgland shows no focal nodules or abnormal areas of heterogeneity. IMPRESSION: 1. No acute osseous abnormality of the cervical spine. 2. Degenerative fusion across the right C2-C3 facet joint. Ana Maria Pimentel WIRE CUTTER, SHUTTLE HAND IMG CT ORDERABLES Final Result * CT HEAD OR BRAIN WO CONTRAST (11/13/2024 11:23 AM CDT) Anatomical Region Laterality Modality Head N/A Computed Tomogra phy 11/13/2024 11:2 3 AM CDT Impressions 11/13/2024 11:46 AM CDT IMPRESSION: 1. No acute intracranial abnormality. 2. Mild generalized atrophy and mild to moderate chronic microangiopathic white matter changes. Narrative 11/13/2024 11:46 AM CDT DICTATING PHYSICIAN: Sol Guevara D.O. EXAM: CT Head, without contrast, 11/13/2024 COMPARISON: None HISTORY: Syncopal episode. PROCEDURE: Contiguous axial images were obtained from the skullbase to the cranial vertex. Dose reduction technique(s) used. FINDINGS: The ventricles and sulci are prominent, suggesting mild cerebral and cerebellar volume loss. There are patchy areas of hypodensity in the cerebral white matter, most consistent with age-related small vessel ischemic disease. The CT attenuation of the brain parenchyma is otherwise unremarkable. No signs of acute infarct are evident. There is no evidence of acute intracranial hemorrhage, mass lesions, edema, or midline shift. Basal cisterns are preserved. Scattered vascular calcifications are noted. The visualized portions of the skull base, midface, and calvarium demonstrate no abnormality. The paranasal sinuses are well aerated and free of significant mucosal disease. The tympanic and mastoid cavities are well aerated. Procedure Note Sol Guevara, DO - 11/13/2024 DICTATING PHYSICIAN: Sol Guevara D.O. EXAM: CT Head, without contrast, 11/13/2024 COMPARISON: None HISTORY: Syncopal episode. PROCEDURE: Contiguous axial images were obtained from the skullbase to thecranial vertex. Dose reduction technique(s) used. FINDINGS: The ventricles and sulci are prominent, suggesting mild cerebraland cerebellar volume loss. There are patchy areas of hypodensity in thecerebral white matter, most consistent with age-related small vesselischemic disease. The CT attenuation of the brain parenchyma is otherwiseunremarkable. No signs of acute infarct are evident. There is no evidenceof acute intracranial hemorrhage, mass lesions, edema, or midline shift.Basal cisterns are preserved. Scattered vascular calcifications arenoted. The visualized portions of the skull base, midface, and calvariumdemonstrate no abnormality. The paranasal sinuses are well aerated andfree of significant mucosal disease. The tympanic and mastoid cavities arewell aerated. IMPRESSION: 1. No acute intracranial abnormality. 2. Mild generalized atrophy and mild to moderate chronic microangiopathicwhite matter changes. Ana Maria Pimentel WIRE CUTTER, SHUTTLE HAND IMG CT ORDERABLES Final Result * Blue Top Tube (11/13/2024 10:52 AM CDT) Blood No Phlebotomy Charged / Unknown 11/13/2024 10:52 AM CDT 11/13/2024 10:58 AM CDT us Ana Maria Pimentel APRN, WES HEMATOLOGY ORDERAB LES Final Result Performing Organization Address City/[facility]/ZIP Co de Phone Number [facility] [address] [place] [address] * (ABNORMAL) Vitamin B12 (11/13/2024 10:52 AM CDT) VITAMIN B12 1,159(H) 213 - 816 pg/mL 11/13/2024 4:46 PM CDT [facility] Blood No Phlebotomy Charged / Unknown 11/13/2024 10:52 AM CDT 11/13/2024 10:58 AM CDT us Yanique Singh APRN, WES CHEMISTRY ORDERABLES Fi nal Result Performing Organization Address City/[facility] Co de Phone Number [facility] [address] [place] [address] * Folate (11/13/2024 10:52 AM CDT) FOLATE 8.4 7.0 - 31.4 ng/mL 11/13/2024 4:46 PM CDT [facility] Blood No Phlebotomy Charged / Unknown 11/13/2024 10:52 AM CDT 11/13/2024 10:58 AM CDT us Yanique Singh APRN, WES CHEMISTRY ORDERABLES Fi nal Result Performing Organization Address City/[facility]/ZIP Co de Phone Number [facility] [address] [place] [address] * Lipase (11/13/2024 10:15 AM CDT) LIPASE 35 8 - 78 U/L 11/13/2024 11:22 AM CDT [facility] [[email or web address]] LAB Blood Venipuncture / Unknown 11/13/2024 10:15 AM CDT 11/13/2024 10:57 AM CDT us Ana Maria Pimentel APRN, WES CHEMISTRY ORDERABL ES Final Result [facility] [[email or web address] LAB #[address] [place] [address] from Last 3 Months Insurance [facility] Advance Directives * Full Code (Latest Code Status on File) Date Activated Date Inactivated Comments 11/13/2024 3:43 PM CPR-Full Treatm ent: FULL ARREST: Attempt Resuscitation/CPR wit intubation and mechanical ventilation. PRE-ARREST: Use entire range of life support measures to stabilize the patient. Care Teams Plastics Factory Worker Relationship Specialty Start Date End Date Nelida Gomez MD [address] [place] [address] PCP - General Family Medicine 11/14/24 Liv Gage APRN, [facility] [address] [place] [address] (work) Nurse Practitioner Cardiology 11/25/24
--- OUTSIDE RECORDS SUMMARY | 2025-01-08 15:10 | XMS_ITS | Clinical Summary ---
Author Organization [facility] Address [address] [place] [address] Phone Care Team Providers Care Pole Frame Construction Worker Name Role Phone Unavailable Primary Care Provider [...] Shortness of Breath. 8.5 Gram 4 Active Social History Tobacco Use Types Packs/Day [...] 11:51 AM CDT Height 165.1 cm (5' 5) 10/08/2023 11:51 AM CDT Body Mass Index [...] (1 of 2) 12/03/2019 INFLUENZA VACCINE (#1) 2024 Insurance
--- OUTSIDE RECORDS SUMMARY | 2025-01-08 15:10 | XMS_ITS | Clinical Summary ---
Author Organization [facility] [employer] Address [address] [place] [address] Care Team Providers Care Pre Press Operator Name Role Phone Nelida Gomez Primary Care Provider Source Comments [facility] [employer],non-owned Affiliates and Associated Physician Practices is amultiple site organization consisting of ambulatory clinics and hospital sitesin [place], [place], [place] and [place]. This disclosure is being madepursuant to the Care Everywhere program and may not contain all information available regarding this patient. Last updated 17.[facility] [employer] Allergies No known active allergies Medications * [...] care, and heating? Not very hard 11/12/2023 [facility] - Occupational Stress [...] place to sleep or slept in a half-way (including now)? No 11/12/2023 Comments Unknown Sex and Gender Information Value Date Recorded Sex Assigned at Not on file Legal Sex Female 11:54 AM ANTHROPOLOGICAL LINGUIST Gender Identity Not on file Sexual Orientation [...] 63.5 kg (140 lb) 04/28/2023 10:24 AM ANTHROPOLOGICAL LINGUIST Height 163.8 cm (5' 4.5) 04/28/2023 10:24 AM CS T Body Mass Index 23.66 04/28/2023 10:24 AM ANTHROPOLOGICAL LINGUIST Plan of Treatment Health Maintenance Due Date Last Done Comments COLOGUARD (AGES 45-75) - COL ON CA SCREENING 1969 COLON MONITORING 1969 COLONOSCOPY - COLON CA SCREENING 1969 CT COLONOGRAPHY - COLON CA SCREENING 1969 Colorectal Cancer Screening 1969 FIT - COLON CA SCREENING 1969 FLEX SIG - COLON CA SCREENING 1969 MAMMOGRAM 1969 HIV SCREENING 1984 HEPATITIS C SCREENING 11/28/1987 DTAP/TDAP/TD VACCINES (1 - Tdap) 1988 HEPATITIS B VACCINE (1 of 3 - 19+ 3-dose series) 1988 PNEUMOCOCCAL VACCINE 50+ (1 of 2 - PCV) 1988 PAP SMEAR 1990 ZOSTER VACCINE (1 of 2) 12/03/2019 DEPRESSION SCREENING 03/13/2024 COVID-19 VACCINE (1 - 2023-2 5 season) 2024 INFLUENZA VACCINE (#1) 2024 LIPID TESTING 11/11/2028 11/12/2023 HIB VACCINE [...] 145 <200 mg/dL 11/12/2023 9:59 AM CDT [facility] Triglycerides 154(H) <150 mg/dL 11/12/2023 9:59 AM CDT [facility] HDL Cholesterol 64 >40 mg/dL 4 9:59 AM CDT [facility] LDL Calculated 50 <130 mg/dL 11/12/2023 9:59 AM CDT [facility] VLDL Calculated 31(H) <=30 mg/dL 4 9:59 AM CDT [facility] Chol HDL Ratio 2.3 <4.5 11/12/2023 9:59 AM CDT [facility] LDL/HDL Ratio 0.8 <5.0 11/12/2023 9:59 AM CDT [facility] Blood BLOOD SPECIMEN / Unknown Venipuncture / Unknown 11/12/2023 7:17 AM CDT 11/12/2023 8:09 AM CDT Marizol Solomon MANAGER [employer] [facility] - CHEMISTRY ORDERABLE S Final Result [facility] [address] [place] [address] from Last 3 Months or Most Recently Relevant to Health Maintenance Insurance [employer] [facility] Advance Directives * Full Code (Latest Code Status on File) Date Activated Date Inactivated Comments 11/12/2023 2:18 AM 11/15/2023 12:00 PM Care Teams Pre Press Operator Relationship Specialty Start Date End Date Nelida Gomez [address] [place] [address] Dr Lowe [address] [place] [phone] PCP - General 04/28/23
== END 2025-01-08 15:15 | disposition left against medical advice (07) ==
PROVIDERS: Emergency Provider Nurse Practitioner
DX: R06.02 Shortness of breath (principal); J44.9 Chronic obstructive pulmonary disease, unspecified; I25.2 Old myocardial infarction; Z79.01 Long term (current) use of anticoagulants; Z91.128 Patient's intentional underdosing of medication regimen for other reason
CPT/HCPCS: 71046; 93005; 94640; 96372; 99213; G0463; J2919